=== PATIENT | female | born 1985 | race Caucasian/White ===

== ENCOUNTER → 2016-10-06 | Outpatient (CLI) | payer OTHER ==
[~2016-10-06] MED LIST: INSHNI SQ; INSU70IN2 SC; MTR600X PO; NVLGI7030 SC; OXYC-57 PO; PRENTAB26 PO
[2016-10-06 15:59] LABS: URINE APPEARANCE CLEAR (CLEAR); URINE BILIRUBIN NEG (NEG); URINE COLOR YELLOW; URINE EPITHELIAL CELL AUTO >30 /lpf (0-5); URINE NITRITE NEG (NEG); UROBILINOGEN NEG (NEG)
[2016-10-06 16:01] LABS: MANUAL MICROSCOPIC REQUIRED? NO; REVIEW REQ? NO
== END | disposition home or self-care (01) ==
LOC: C.LABSPEC 16:05
PROVIDERS: ATTEND Obstetrics & Gynecology
DX: O34.219 Maternal care for unspecified type scar from previous cesarean delivery (principal)

== ENCOUNTER → 2016-10-09 | Outpatient (CLI) | payer OTHER ==
[2016-10-09 11:27] LABS: BASO % 0.3 %; BASO ABS # 0.03 K/uL (0-0.2); COMPLETE YES; EOS % 3.1 %; HEMATOCRIT 42.3 % (37-47); IG% 0.2 %; LYMPH % 29.3 %; LYMPH ABS # 2.86 K/uL (1.2-3.4); MEAN CORPUSCULAR HEMOGLOBIN 29.7 pg (25-34); MEAN CORPUSCULAR HGB CONC 34.5 g/dl (32-36); MEAN PLATELET VOLUME 12.4 fL (7.4-10.4); MONO % 8.3 %; NEUT % 58.8 %; PLATELET COUNT 217 K/uL (130-400); RED BLOOD COUNT 4.92 M/uL (4.2-5.4); WHITE BLOOD COUNT 9.76 K/uL (4.8-10.8)
[2016-10-11 02:55] LABS: CHLAMYDIA TRACH RNA*** NOT DETECTED (NOT DETECTED); GC (NEIS GONORRHOEAE)RNA** NOT DETECTED (NOT DETECTED)
== END | disposition home or self-care (01) ==
LOC: C.LAB1850 09:54
PROVIDERS: ATTEND Obstetrics & Gynecology
DX: O34.219 Maternal care for unspecified type scar from previous cesarean delivery (principal)

== ENCOUNTER → 2016-11-21 | Outpatient (CLI) | payer OTHER ==
[2016-11-21 15:19] LABS: GTGD 50 Grams
== END | disposition home or self-care (01) ==
LOC: C.LAB1850 12:35
PROVIDERS: ATTEND Obstetrics & Gynecology
DX: Z34.82 Encounter for supervision of other normal pregnancy, second trimester (principal)

== ENCOUNTER → 2016-12-13 | Outpatient (CLI) | payer OTHER | END | disposition home or self-care (01) | LOC: C.LAB 09:11 | PROVIDERS: ATTEND Obstetrics & Gynecology | DX: O28.1 Abnormal biochemical finding on antenatal screening of mother (principal); Z3A.00 Weeks of gestation of pregnancy not specified ==

== ENCOUNTER → 2017-02-09 | Outpatient (CLI) | payer OTHER ==
[2017-02-09 16:23] LABS: HEMATOCRIT 36.3 % (37-47)
== END | disposition home or self-care (01) ==
LOC: C.LAB1850 15:05
PROVIDERS: ATTEND Obstetrics & Gynecology
DX: Z34.83 Encounter for supervision of other normal pregnancy, third trimester (principal)

== ENCOUNTER → 2017-02-09 | Outpatient (CLI) | payer OTHER ==
[2017-02-09 16:55] LABS: URINE APPEARANCE CLOUDY (CLEAR); URINE BILIRUBIN NEG (NEG); URINE COLOR YELLOW; URINE EPITHELIAL CELL AUTO >30 /lpf (0-5); URINE NITRITE NEG (NEG); URINE PH 5.5 (4.5-7.5); URINE SPECIFIC GRAVITY 1.018 (1.000-1.030); UROBILINOGEN NEG (NEG)
[2017-02-09 17:01] LABS: MANUAL MICROSCOPIC REQUIRED? NO; REVIEW REQ? YES
== END | disposition home or self-care (01) ==
LOC: C.LABSPEC 16:35
PROVIDERS: ATTEND Obstetrics & Gynecology
DX: Z34.83 Encounter for supervision of other normal pregnancy, third trimester (principal)

== ENCOUNTER 2017-03-30 14:59 | Outpatient (CLI) | payer OTHER ==
[~2017-03-30] VITALS: Ht 170.2 cm; Wt 131.5 kg
[2017-03-30] MEDS ORDERED: INSHNI SQ (16:35)
[2017-03-30] MEDS ORDERED: NVLGI7030 SC (16:35)
[2017-03-30] MEDS ORDERED: PRENTAB26 PO (16:35)
[2017-04-23] MEDS ORDERED: INSU70IN2 SC (10:11)
== END 2017-03-30 16:10 | disposition home or self-care (01) ==
LOC: C.LD 14:59 → C.OPB 14:59
PROVIDERS: ATTEND Obstetrics & Gynecology
DX: O16.3 Unspecified maternal hypertension, third trimester (principal); O24.419 Gestational diabetes mellitus in pregnancy, unspecified control; Z3A.35 35 weeks gestation of pregnancy

== ENCOUNTER 2017-04-07 17:50 | Outpatient (CLI) | payer OTHER ==
[~2017-04-07 17:50] MED LIST changes: -INSU70IN2 SC; -MTR600X PO; -OXYC-57 PO
[2017-04-23] MEDS ORDERED: INSU70IN2 SC (10:11)
== END 2017-04-07 18:48 | disposition home or self-care (01) ==
LOC: C.LD 17:50 → C.OPB 17:50
PROVIDERS: ATTEND Obstetrics & Gynecology
DX: O24.419 Gestational diabetes mellitus in pregnancy, unspecified control (principal); Z3A.00 Weeks of gestation of pregnancy not specified

== ENCOUNTER 2017-04-10 11:19 | Outpatient (CLI) | payer OTHER ==
[~2017-04-10] VITALS: Ht 170.2 cm; Wt 132.0 kg
[~2017-04-10 11:19] MED LIST changes: -INSU70IN2 SC; -MTR600X PO; -OXYC-57 PO
[2017-04-10 11:43] VITALS: Ht 170.2 cm; Wt 132.0 kg
[2017-04-23] MEDS ORDERED: INSU70IN2 SC (10:11)
== END 2017-04-10 11:55 | disposition home or self-care (01) ==
LOC: C.OPB 11:19 → C.LD 11:20 → C.OPB 11:55
PROVIDERS: ATTEND Obstetrics & Gynecology
DX: O24.414 Gestational diabetes mellitus in pregnancy, insulin controlled (principal); Z3A.00 Weeks of gestation of pregnancy not specified

== ENCOUNTER → 2017-04-10 | Outpatient (CLI) | payer OTHER ==
[~2017-04-10] MED LIST changes: +INSU70IN2 SC; +MTR600X PO; +OXYC-57 PO
== END | disposition home or self-care (01) ==
LOC: C.LABSPEC 15:58
PROVIDERS: ATTEND Obstetrics & Gynecology
DX: O09.03 Supervision of pregnancy with history of infertility, third trimester (principal)

== ENCOUNTER 2017-04-14 17:38 | Outpatient (CLI) | payer OTHER ==
[2017-04-23] MEDS ORDERED: INSU70IN2 SC (10:11)
== END 2017-04-14 18:04 | disposition home or self-care (01) ==
LOC: C.OPB 17:38 → C.LD 17:38 → C.OPB 18:04
PROVIDERS: ATTEND Obstetrics & Gynecology
DX: O24.419 Gestational diabetes mellitus in pregnancy, unspecified control (principal); Z3A.00 Weeks of gestation of pregnancy not specified

== ENCOUNTER 2017-04-17 18:26 | Outpatient (CLI) | payer OTHER ==
[2017-04-23] MEDS ORDERED: INSU70IN2 SC (10:11)
== END 2017-04-17 18:59 | disposition home or self-care (01) ==
LOC: C.OPB 18:26 → C.LD 18:27 → C.OPB 18:59
PROVIDERS: ATTEND Obstetrics & Gynecology
DX: O24.419 Gestational diabetes mellitus in pregnancy, unspecified control (principal); Z3A.00 Weeks of gestation of pregnancy not specified

== ENCOUNTER 2017-04-27 05:42 | Inpatient (IN) | payer OTHER ==
--- NOTE | 2017-04-23 10:25 | PAT Medication Instructions ---
Service Date Apr 23, 2017. Current Home Medication List Insulin Aspart 70/30 (Novolog Mix 70/30), 40 SC WITH MEALS AND HS Insulin Isophan/Regular (Novolin 70/30), 50-55 UNITS SC HS Multivit/Min/Iron/Fol Ac/Pren ( Vitamin), 1 TAB PO QAM Medication Instructions For Your Scheduled Surgery - Hold the following medications the morning of surgery: Insulin Aspart 70/30 (Novolog Mix 70/30), 40 SC WITH MEALS AND HS Multivit/Min/Iron/Fol Ac/Pren ( Vitamin), 1 TAB PO QAM - Take the following medications as scheduled the night before surgery: Insulin Isophan/Regular (Novolin 70/30), 50-55 UNITS SC HS Insulin Aspart 70/30 (Novolog Mix 70/30), 40 SC WITH MEALS AND HS If you have any questions please call us at [phone] or [phone] or [phone]
[2017-04-23 11:20] LABS: BASO % 0.1 %; BASO ABS # 0.01 K/uL (0-0.2); COMPLETE YES; EOS % 1.6 %; HEMATOCRIT 34.2 % (37-47); IG% 0.2 %; LYMPH ABS # 2.19 K/uL (1.2-3.4); MEAN CELL VOLUME 83.4 fL (80-100); MEAN CORPUSCULAR HEMOGLOBIN 26.8 pg (25-34); MEAN CORPUSCULAR HGB CONC 32.2 g/dl (32-36); MEAN PLATELET VOLUME 12.4 fL (7.4-10.4); MONO % 10.7 %; NEUT % 66.4 %; PLATELET COUNT 201 K/uL (130-400); WHITE BLOOD COUNT 10.44 K/uL (4.8-10.8)
[2017-04-23 11:24] LABS: URINE APPEARANCE CLOUDY (CLEAR); URINE BILIRUBIN NEG (NEG); URINE COLOR DK YELLOW; URINE EPITHELIAL CELL AUTO >30 /lpf (0-5); URINE NITRITE NEG (NEG); URINE SPECIFIC GRAVITY 1.029 (1.000-1.030); UROBILINOGEN NEG (NEG)
[2017-04-23 11:27] LABS: MANUAL MICROSCOPIC REQUIRED? NO; REVIEW REQ? YES
[2017-04-23 11:35] LABS: BLOOD UREA NITROGEN 7 mg/dl (7-18); BUN/CREATININE RATIO 14.5 (10-20); CARBON DIOXIDE 22 mmol/L (21-32); CHLORIDE 108 mmol/L (98-107); CREATININE 0.51 mg/dl (0.60-1.20); GLUCOSE 62 mg/dl (70-99); POTASSIUM 3.7 mmol/L (3.5-5.1); SODIUM 138 mmol/L (136-145)
[2017-04-23 12:13] LABS: URINE MUCUS PRESENT (NONE PRSENT)
[2017-04-27] VITALS (16 sets, daily range): BP systolic 103–117; BP diastolic 69–85; PULSE 73–85; TEMP 36.5–36.7; O2SAT 95–98; Ht 170.2 cm; Wt 132.3 kg
[~2017-04-27] VITALS: Ht 170.2 cm; Wt 132.3 kg
[~2017-04-27 05:42] MED LIST changes: -INSHNI SQ; +INSU70IN2 SC
[2017-04-27] MEDS ORDERED: CEFAZOLIN IV 2,000 MG in DEXTROSE 5% 50ML IV SCH (06:00)
[2017-04-27] MEDS ORDERED: LACTATED RINGER'S 1000ML 1,000 ML IV SCH (06:00)
[2017-04-27] MEDS: CITRIC ACID/SODIUM CITRATE 15 ML UDC PO SCH ×2 (06:00→07:17)
[2017-04-27] MEDS ORDERED: CEFAZOLIN IV 3,000 MG/65 ML D5W IV STA (06:35)
[2017-04-27 06:41] LABS: BASO % 0.1 %; BASO ABS # 0.01 K/uL (0-0.2); HEMATOCRIT 36.1 % (37-47); IG% 0.2 %; LYMPH % 22.2 %; LYMPH ABS # 2.27 K/uL (1.2-3.4); MEAN CELL VOLUME 83.6 fL (80-100); MEAN CORPUSCULAR HEMOGLOBIN 26.2 pg (25-34); MEAN PLATELET VOLUME 12.5 fL (7.4-10.4); MONO % 11.3 %; NEUT % 64.2 %; PLATELET COUNT 199 K/uL (130-400); RED BLOOD COUNT 4.32 M/uL (4.2-5.4); WHITE BLOOD COUNT 10.21 K/uL (4.8-10.8)
[2017-04-27 06:48] LABS: COMPLETE YES; MEAN CORPUSCULAR HGB CONC 31.3 g/dl (32-36)
[2017-04-27] MEDS ORDERED: FENTANYL CITRATE INJ 50 MCG/1 ML 2 ML VIAL ONE (07:22)
[2017-04-27] MEDS ORDERED: OXYTOCIN INJ 10 UNITS/ML VIAL ONE ×4 (07:22→08:28)
[2017-04-27] MEDS ORDERED: MoRPHine SULFATE PF 1 MG/ML 10 ML AMP/VIAL ONE (07:22)
[2017-04-27] MEDS ORDERED: ONDANSETRON INJ 2 MG/ML 2 ML VIAL ONE (07:25)
--- NOTE | 2017-04-27 08:06 | HISTORY & PHYSICAL EXAMINATION ---
DATE OF ADMISSION: 04/27/2017 CHIEF COMPLAINT: Desires repeat . HISTORY OF PRESENT ILLNESS: This is a 32-year-old 0-0-1 with a due date that is derived from last menstrual period consistent with first trimester ultrasound. This has been complicated by insulin-dependent gestational diabetes, prior , history of infertility, gestational hypertension as well as limited compliance with care. ALLERGIES: None. MEDICATION LIST: Insulin, vitamins. PAST MEDICAL HISTORY: Notable for PCOS with ovarian cystectomy fibroids and varicella as well as infertility. This was conceived on Prometrium with the assistance of Christiano Lugo. PAST SURGICAL HISTORY: HSG cholecystectomy, breast reduction and prior section x1. SOCIAL HISTORY: Negative x3. OBSTETRIC HISTORY: 40-week section for failure to progress with a 7-pound 2-ounce infant. PHYSICAL EXAMINATION: Weight is 291 pounds. heart tones on admission are 130 with moderate variability, accels, no decels. Cervical exam was closed, thick, and high April 10, and repeat examination is deferred at this time. ASSESSMENT AND PLAN: A 32-year-old 2, para 1 with a history of a prior and a medically complicated with diabetes and hypertension who is currently presenting for repeat section.
[2017-04-27] MEDS ORDERED: KETOROLAC TROMETHAMINE 30 MG/ML VIAL ONE (08:29)
[2017-04-27] MEDS ORDERED: PHENYLEPHRINE 100MCG/ML 5ML SYR ONE (08:40)
[2017-04-27] MEDS ORDERED: OXYCODONE/ACETAMINOPHEN 5-325 TAB PO PRN (08:45)
[2017-04-27] MEDS ORDERED: MAGNESIUM HYDROXIDE SUSP 30 ML UDC PO PRN (08:45)
[2017-04-27] MEDS ORDERED: KETOROLAC TROMETHAMINE 30 MG/ML VIAL IV. PRN ×2 (08:45→09:00)
[2017-04-27] MEDS ORDERED: SENNA 8.6 MG TAB PO PRN (08:45)
[2017-04-27] MEDS ORDERED: ZOLPIDEM TARTRATE 5 MG TAB PO PRN (08:45)
[2017-04-27] MEDS ORDERED: HYDROCORTISONE ACETATE 25 MG SUPP PR PRN (08:45)
[2017-04-27] MEDS ORDERED: ONDANSETRON INJ 2 MG/ML 2 ML VIAL IV PRN ×2 (08:45→09:00)
[2017-04-27] MEDS ORDERED: LANOLIN OINT EXT PRN ×2 (08:45)
[2017-04-27] MEDS ORDERED: DIPHTHERIA/TETANUS/PERTUSSIS 0.5 ML SYR/VIAL IM. ONE (08:45)
[2017-04-27] MEDS ORDERED: MEPERIDINE HCL 50 MG/ML CARP IV PRN ×2 (08:45)
[2017-04-27] MEDS ORDERED: DiphenhydrAMINE HCL 50 MG/ML VIAL IV PRN ×2 (08:45→09:00)
[2017-04-27] MEDS ORDERED: BENZOCAINE 20% AER SPR 82.5 GM CAN EXT PRN (08:45)
[2017-04-27] MEDS ORDERED: SUPERCREAM 0.870 % 15GM JAR EXT PRN (08:45)
[2017-04-27] MEDS ORDERED: PROMETHAZINE HCL INJ 25 MG in SODIUM CHLORIDE 0.9% 50ML 50 ML IV PRN (08:45)
[2017-04-27] MEDS ORDERED: LACTATED RINGER'S 1000ML 500 ML IV PRN (08:57)
[2017-04-27] MEDS ORDERED: NALOXONE HCL INJ 0.08 MG in SYRINGE 1.8 ML IV PRN (08:57)
[2017-04-27] MEDS ORDERED: NALOXONE HCL INJ 1 MG in SODIUM CHLORIDE 0.9% 1000ML 1,000 ML IV PRN (08:57)
[2017-04-27] MEDS ORDERED: SODIUM CHLORIDE 0.9% 1000ML 1,000 ML IV PRN (08:57)
[2017-04-27] MEDS: SIMETHICONE 80 MG CHEW PO SCH ×4 (09:00→19:58)
[2017-04-27] MEDS ORDERED: PROMETHAZINE HCL INJ 6.25 MG in SODIUM CHLORIDE 0.9% 50ML 50 ML IV PRN (09:00)
[2017-04-27] MEDS ORDERED: NO NARCOTICS OR SEDATIVES SCH (09:00)
[2017-04-27] MEDS ORDERED: NALOXONE HCL 0.4 MG/1 ML VIAL/CARP IV PRN (09:00)
[2017-04-27] MEDS ORDERED: MoRPHine SULFATE PF 1 MG/ML 10 ML AMP/VIAL EPI PRN (09:00)
[2017-04-27] MEDS ORDERED: MoRPHine SULFATE 2 MG/ML CARP IV PRN (09:00)
[2017-04-27] MEDS ORDERED: MEPERIDINE HCL 25 MG/ML CARP IV PRN (09:00)
[2017-04-27] MEDS ORDERED: EpHEDrine SULFATE INJ 50 MG/ML AMP IV PRN (09:00)
--- NOTE | 2017-04-27 09:08 | OPERATIVE REPORT ---
DATE OF OPERATION: 04/27/2017 PREOPERATIVE DIAGNOSES: 1. Medeiros intrauterine at term. 2. Chronic hypertension. 3. Gestational diabetes, insulin-dependent. 4. Group B Strep negative. 5. Prior section. 6. Maternal morbid obesity. POSTOPERATIVE DIAGNOSES: Same. PROCEDURE: Repeat low transverse section. SURGEON: Dr. Latonia Cr. ASSIST: Dr. Moody and PGY1. ANESTHESIA: Spinal. FINDINGS: Morbid maternal obesity and moderate scar from prior section. in vertex presentation. Normal tubes and ovaries bilaterally. Placenta extracted intact with a 3-vessel cord. COMPLICATIONS: None. DISPOSITION: Stable to labor and delivery for recovery. DESCRIPTION OF PROCEDURE: Jewels Colin was placed on the table in the supine position with a leftward tilt, prepped and draped in standard sterile fashion and a hard time-out was taken prior to proceeding. Consultation with the patient both in the office and prior to surgery while she was positioned on the table was undertaken in order to determine the most optimal placement of her incision. We ultimately elected to do a high transverse incision on the abdomen, a few inches below the belly button to accommodate pannus; however, the uterine incision was again low transverse. Her incision was created on the skin, carried down to the subcutaneous tissue to the fascia, which was aimed to be roughly at the level of the anterior superior iliac spines. We were able to identify the midline and dissect the fascia out laterally in the usual smile shaped fashion. The fascia was then grasped with Alison clamps, elevated, and sharply and bluntly dissected off the underlying rectus. The midline of the rectus was in a blunt manner. The peritoneum was entered bluntly and this was extended using pressure from the boring mill operator for metal's hands. A large Yosvany O ring retractor was then placed after palpation of the abdomen, revealed that there were no adhesions to the uterus, which could be damaged by the Yosvany. Once the Yosvany was placed, the lower uterine segment was well visible. The uterus was noted to be levorotated rather significantly. A bladder blade was used to elevate the inferior skin edge including the overlying Yosvany up and away from the lower uterine segment. A bladder flap was then created. A low transverse incision was then made. Clear fluid was encountered. The incision of the hysterotomy was extended bluntly. The surgeon's hand was introduced and the 's head was elevated to the hysterotomy and delivered using mild fundal pressure. A nuchal cord x1 was reduced and then the shoulders and body delivered as well. The female was vigorous immediately after delivery. The cord was doubly clamped and cut and the infant was taken to the warmer. Cord blood was collected. The uterus was then palpated and the placenta was delivered manually. It will be sent for examination. The uterus was then exteriorized, cleared of all clot and debris using a dry lap sponges. The ovaries and tubes were examined and found to be normal. The angles of the hysterotomy were grasped with Allis clamps and the hysterotomy was repaired in the usual running locked fashion using Vicryl suture. At the completion of the repair, the hysterotomy was intact and hemostatic. The uterus was then gently reapproximated into the abdomen after the posterior gutter was noted to be relatively free of any clot or debris. The lateral gutters were cleared using a retractor to elevate the skin and then packing a damp lap sponge into each lateral angle, allowing the hysterotomy angle to be visualized both on and off tension. When the hysterotomy was again assured to be completely hemostatic, all lap sponges were removed and the Yosvany retractor was removed. The fascia was then closed in a running nonlocked manner using PDS suture. At the completion of the repair, the fascia was examined and found to be free of any defect. Subcutaneous tissue was copiously irrigated using clean saline and clean fresh lap sponges. The subcutaneous tissue was closed in 3 layers of 3-0 chromic suture with no more than 2 cm of space between each layer of suture. The final layer of suture was placed just subdermally and then the skin was closed using genesis at approximately a 1-cm interval between each genesis to allow drainage if needed. Telfa was applied over the genesis followed by an ABD lap sponge and Medipore tape was then applied as a dressing. The Noriega was noted to be draining clear yellow urine. At that time, the patient was transferred off the table to the recovery room. I attest to the content of the Intraoperative Record and any orders documented therein. Any exception s are noted below.
--- NOTE | 2017-04-27 09:16 | [facility] Post Operative Brief Note ---
Immediate Operative Summary Operative Date Apr 27, 2017. Pre-Operative Diagnosis PRIOR CAESAREAN SECTION; GESTATIONAL DIABETIC, GESTATIONAL HYPERTENSION, OBESITY; LIMITED PRE- CARE Post-Operative Diagnosis ABOVE Procedure(s) Performed REPEAT CAESAREAN SECTION Surgeon DR. CERVANTES Heavy Machinery Operator Surgeon(s) DR. GEORGE Estimated Blood Loss 600 Findings DELIVERED A VIABLE FEMALE INFANT, APGARS 7, 9. WEIGHT 9#7. NORMAL UTERUS, FALLOPIAN TUBES BILATERALLY. Fluids (cc crystalloids) 700 Specimens PLACENTA - TO BE EXAMINED CORD BLOOD Drains RIOJAS TO STRAIGHT DRAINAGE, CLEAR URINE AT END OF CASE. Anesthesia SPINAL Complication(s) None Disposition Recovery Room / PACU
[2017-04-27] MEDS: NALBUPHINE HCL INJ 10 MG/ML AMP IV PRN ×2 (10:22→17:11)
[2017-04-27] MEDS: OXYTOCIN INJ 20 UNITS in LACTATED RINGER'S 1000ML 1,000 ML IV SCH ×2 (11:03→19:01)
--- NOTE | 2017-04-27 14:13 | Anesthesiology Progress Note ---
Anesthesia Post Op Note Date & Time Apr 27, 2017 at 14:13 Vital Signs Pain Intensity: 0.0 Vital Signs Past 12 Hours Date Time Temp Pulse Resp B/P (MAP) Pulse Ox O2 Delivery O2 Flow Rate FiO2 04/27/17 13:15 16 96 04/27/17 12:15 36.5 76 18 108/70 (83) 97 Room Air 04/27/17 12:15 18 97 04/27/17 11:15 36.6 73 18 111/85 (94) 97 Room Air 04/27/17 11:15 97 Room Air 04/27/17 11:15 97 Room Air 04/27/17 11:15 18 97 Notes Mental Status: alert / awake / arousable, participated in evaluation Pt Amnestic to Procedure: Yes Nausea / Vomiting: adequately controlled Pain: adequately controlled Airway Patency, RR, SpO2: stable & adequate BP & HR: stable & adequate Hydration State: stable & adequate Neuraxial Anesthesia: was administered, sensory block is resolving Anesthetic Complications: no major complications apparent
[2017-04-27] MEDS: DOCUSATE SODIUM 100 MG CAP PO SCH (19:58)
[2017-04-28 00:05] VITALS: BP 100/66; PULSE 72; TEMP 36.4; O2SAT 98
[2017-04-28 01:00] VITALS: O2SAT 98
[2017-04-28 02:30] VITALS: O2SAT 96
[2017-04-28] MEDS ORDERED: NURSING VERBAL MED ORDER ONE (03:00)
[2017-04-28] MEDS ORDERED: DC INTRASPINAL MORPHINE ONE (03:00)
[2017-04-28] MEDS ORDERED: LACTATED RINGER'S 1000ML 500 ML IV STA (03:08)
[2017-04-28] MEDS ORDERED: LACTATED RINGER'S 1000ML 1,000 ML IV SCH (03:15)
[2017-04-28 04:20] VITALS: BP 113/76; PULSE 89; TEMP 36.5; O2SAT 97
[2017-04-28] MEDS: IBUPROFEN 600 MG TAB PO PRN ×3 (04:21→20:57)
[2017-04-28] MEDS: OXYCODONE/ACETAMINOPHEN 5-325 TAB PO PRN ×3 (04:21→20:57)
[2017-04-28 07:07] LABS: BASO % 0.1 %; BASO ABS # 0.01 K/uL (0-0.2); COMPLETE YES; EOS % 2.1 %; HEMATOCRIT 31.1 % (37-47); IG% 0.4 %; LYMPH % 18.7 %; LYMPH ABS # 1.89 K/uL (1.2-3.4); MEAN CELL VOLUME 83.4 fL (80-100); MEAN CORPUSCULAR HGB CONC 31.2 g/dl (32-36); MEAN PLATELET VOLUME 12.1 fL (7.4-10.4); MONO % 8.6 %; NEUT % 70.1 %; PLATELET COUNT 161 K/uL (130-400); RED BLOOD COUNT 3.73 M/uL (4.2-5.4); WHITE BLOOD COUNT 10.12 K/uL (4.8-10.8)
--- NOTE | 2017-04-28 07:16 | Progress Note ---
Subjective Apr 28, 2017. Subjective conversation w/ patient, physical exam, chart review, lab review Ambulation: ambulating normally Voiding: no voiding problems Passing Gas: No Diet Tolerance: Clear Liquids Lochia: Moderate Feeding Type: Breast Feeding Pain: controlled Review of Systems Respiratory: No shortness of breath Cardiac: No chest pain Abdomen: No nausea, No vomiting Female : No dysuria Objective Vital Signs Date Time Temp Pulse Resp B/P (MAP) Pulse Ox O2 Delivery O2 Flow Rate FiO2 04/28/17 04:20 36.5 89 16 113/76 (88) 97 Room Air 04/28/17 02:30 16 96 04/28/17 01:00 18 98 04/28/17 00:05 98 Room Air 04/28/17 00:05 36.4 72 18 100/66 (77) 98 Room Air 04/28/17 00:05 18 98 04/27/17 23:15 16 96 04/27/17 22:35 18 95 04/27/17 22:15 18 95 04/27/17 21:15 20 95 04/27/17 20:15 36.7 85 18 117/75 (89) 97 Room Air 04/27/17 20:15 18 97 04/27/17 19:15 18 97 04/27/17 18:15 16 95 04/27/17 17:15 18 96 04/27/17 16:30 95 Room Air 04/27/17 16:15 20 95 04/27/17 15:15 18 97 04/27/17 15:00 36.5 76 18 103/69 (80) 97 Room Air 04/27/17 14:15 18 98 04/27/17 13:15 16 96 04/27/17 12:15 36.5 76 18 108/70 (83) 97 Room Air 04/27/17 12:15 18 97 04/27/17 11:15 36.6 73 18 111/85 (94) 97 Room Air 04/27/17 11:15 97 Room Air 04/27/17 11:15 97 Room Air 04/27/17 11:15 18 97 Physical Exam General Appearance: WELL-APPEARING, WD/WN, NO APPARENT DISTRESS Respiratory/Chest: lungs clear, normal breath sounds, no respiratory distress Cardiovascular: regular rate, rhythm, no gallop Abdomen: normal bowel sounds, soft Fundus: Firm, Non-Tender, Relation to Umbilicus (at level of U) Incision Description: Clean, Dry & Intact Extremities: no calf tenderness Laboratory Results Last 24 Hours Test 04/28/17 06:50 White Blood Count 10.12 K/uL Red Blood Count 3.73 M/uL Hemoglobin 9.7 g/dL Hematocrit 31.1 % Mean Corpuscular Volume 83.4 fL Mean Corpuscular Hemoglobin 26.0 pg Mean Corpuscular Hemoglobin Concent 31.2 g/dl Platelet Count 161 K/uL Mean Platelet Volume 12.1 fL Neutrophils (%) (Auto) 70.1 % Lymphocytes (%) (Auto) 18.7 % Monocytes (%) (Auto) 8.6 % Eosinophils (%) (Auto) 2.1 % Basophils (%) (Auto) 0.1 % Neutrophils # (Auto) 7.10 K/uL Lymphocytes # (Auto) 1.89 K/uL Monocytes # (Auto) 0.87 K/uL Eosinophils # (Auto) 0.21 K/uL Basophils # (Auto) 0.01 K/uL RDW Standard Deviation 48.3 fL RDW Coefficient of Variation 15.9 % Immature Granulocyte % (Auto) 0.4 % Immature Granulocyte # (Auto) 0.04 K/uL Assessment and Plan Post-Op Day#: 1 Continue Routine Care: - Vital Signs reviewed and WNL. - Hgb 9.7. (on admission was 11.0. Later in afternoon, 11.3.) - Blood Type: O+, GBS - , Rubella Immune. - Pt is doing well clinically. - Monitor and Control pain with Motrin PRN, resume regular diet as tolerated, Monitor Lochia. - Encourage breast feeding. - Continue routine post op care. HETAL QUEZADA PGY1 FM RESIDENT Resident Physician Supervision Note: I interviewed and examined the patient. Discussed with Dr. quezada and agree with findings and plan as documented in the note. Any exceptions or clarifications are listed here: [None] Documented By: Ezequiel Frias Resident Tracking Resident Involvement: Resident Care Provided Care Provided: OB Delivery
[2017-04-28 07:50] VITALS: BP 102/66; PULSE 72; TEMP 36.6
[2017-04-28] MEDS ORDERED: PRENATAL VITAMIN TAB PO SCH (08:00)
--- NOTE | 2017-04-28 08:54 | Anesthesiology Progress Note ---
Anesthesia Post Op Note Date & Time Apr 28, 2017 at 08:53 Vital Signs Pain Intensity: 2.0 Vital Signs Past 12 Hours Date Time Temp Pulse Resp B/P (MAP) Pulse Ox O2 Delivery O2 Flow Rate FiO2 04/28/17 04:20 36.5 89 16 113/76 (88) 97 Room Air 04/28/17 02:30 16 96 04/28/17 01:00 18 98 04/28/17 00:05 98 Room Air 04/28/17 00:05 36.4 72 18 100/66 (77) 98 Room Air 04/28/17 00:05 18 98 04/27/17 23:15 16 96 04/27/17 22:35 18 95 04/27/17 22:15 18 95 04/27/17 21:15 20 95 Notes Mental Status: alert / awake / arousable, participated in evaluation Pt Amnestic to Procedure: Yes Nausea / Vomiting: adequately controlled Pain: adequately controlled Airway Patency, RR, SpO2: stable & adequate BP & HR: stable & adequate Hydration State: stable & adequate Neuraxial Anesthesia: sensory block resolved Anesthetic Complications: no major complications apparent
[2017-04-28] MEDS: SIMETHICONE 80 MG CHEW PO SCH ×4 (09:03→19:50)
[2017-04-28] MEDS: PRENATAL VITAMIN TAB PO SCH (09:03)
[2017-04-28] MEDS: DOCUSATE SODIUM 100 MG CAP PO SCH ×2 (09:03→19:50)
[2017-04-28] MEDS: FERROUS SULFATE 325 MG TAB PO SCH (09:03)
[2017-04-28 15:30] VITALS: BP 118/83; PULSE 96; TEMP 36.4
[2017-04-28] MEDS ORDERED: BISACODYL 5 MG TABEC PO ONE (22:00)
[2017-04-29 00:01] VITALS: BP 114/77; PULSE 79; TEMP 36.8; O2SAT 99
[2017-04-29 06:29] LABS: HEMATOCRIT 31.4 % (37-47)
--- NOTE | 2017-04-29 07:07 | Progress Note ---
Subjective Apr 29, 2017. Subjective conversation w/ patient, physical exam, chart review, lab review Ambulation: ambulating normally Voiding: no voiding problems Passing Gas: Yes Diet Tolerance: Regular Diet Lochia: Moderate Feeding Type: Breast Feeding Pain: controlled Review of Systems Respiratory: No shortness of breath Cardiac: No chest pain Abdomen: No nausea, No vomiting Female : No dysuria Objective Vital Signs Date Time Temp Pulse Resp B/P (MAP) Pulse Ox O2 Delivery O2 Flow Rate FiO2 04/29/17 00:01 99 Room Air 04/29/17 00:01 36.8 79 20 114/77 (89) Room Air 04/28/17 15:30 Room Air 04/28/17 15:30 36.4 96 20 118/83 (95) Room Air 04/28/17 07:50 Room Air 04/28/17 07:50 36.6 72 20 102/66 (78) Room Air Physical Exam General Appearance: WELL-APPEARING, WD/WN, NO APPARENT DISTRESS Respiratory/Chest: lungs clear, normal breath sounds, no respiratory distress Cardiovascular: regular rate, rhythm, no gallop Abdomen: normal bowel sounds, soft Fundus: Firm, Non-Tender, Relation to Umbilicus (1 below U) Incision Description: Clean, Dry & Intact Extremities: no calf tenderness Laboratory Results Last 24 Hours Test 04/29/17 06:11 Hemoglobin 9.4 g/dL Hematocrit 31.4 % Assessment and Plan Post-Op Day#: 2 Continue Routine Care: - Vital Signs reviewed and WNL. - Hgb 9.4. (on admission was 11.3. Yesterday was 9.7.) - Blood Type: O+, GBS - , Rubella Immune. - Pt is doing well clinically. - Monitor and Control pain with Motrin PRN, resume regular diet as tolerated, Monitor Lochia. - Encourage breast feeding. - Pt counselled on discharge instructions. HETAL RICHARDSON PGY1 FM RESIDENT Resident Physician Supervision Note: I was present with Dr. Richardson during the history and exam. I discussed the case with the resident and agree with the findings and plan as documented in the note. Any exceptions or clarifications are listed here: doing well. ready for discharge. discussed pain meds and pain management. routine instructions and f/u 6wk pp. Documented By: Cecy Boston Resident Tracking Resident Involvement: Resident Care Provided Care Provided: OB Delivery
--- NOTE | 2017-04-29 07:08 | Discharge Instructions ---
Discharge Instructions Date of Service Apr 29, 2017. Admission Reason for Admission: Previous Section Discharge Discharge Diagnosis / Problem: DELIVERY Discharge Goals Goal(s): Routine recovery after Medications Continue Dispensed Medications: supercream, dermaplast, tucks, lansinoh Activity Recommendations Activity Limitations: per Instructions/Follow-up section . Instructions / Follow-Up Instructions / Follow-Up ACTIVITY RECOMMENDATIONS: * Gradual return to full activity over the next 2-3 weeks. * No lifting - nothing heavier than baby over the next 2-3 weeks. * Do not engage in vigorous exercise, sexual activity or sports until cleared by your physician. * Do not drive or operate any motorized equipment until cleared by your physician. * You may shower/bathe daily. MEDICATIONS: For discomfort or pain, you may use Acetaminophen (Tylenol), Ibuprofen (Advil), or Naproxen (Aleve) following the package directions. For constipation you may use Colace following the package directions. BREAST CARE: If you are not breast feeding: * Wear a supportive bra 24 hours a day for one to two weeks. * Avoid stimulating your breasts and nipples as much as possible during the first few weeks after delivery. * When taking a shower, have the warm water hit your back, not breasts. * When your breasts feel full, apply ice packs. Usually three to four times a day helps ease the discomfort. * Take a mild pain medication (Tylenol / Motrin) when you are uncomfortable. If breast feeding: * Use breast milk to lubricate nipples. Lansinoh cream may be used for sore nipples. You do not need to remove cream prior to breast feeding. If using a different brand of cream, check the label for directions regarding removal of cream prior to nursing. * Wear a supportive bra. * If having problems with breasts or breast feeding, call a technology sales consultant or your health care provider. SPECIAL CARE INSTRUCTIONS: When you are discharged from the hospital, it is important for you to follow the instructions listed below: * During the first week at home, you should be able to care for yourself and your baby. In addition, the usual light household activities are encouraged. * Limit your activities to the way you feel. Do not try to clean the house or move furniture. Be sensible. * If you actively engage in sports and have done so up until the time of your delivery, you may resume these activities as soon as you feel able. This may take up to one month or even longer. Use good judgment. * Continue to take your vitamins for at least six weeks after the of your baby. * Your diet need not be limited unless you were on a special diet before your delivery. Breast-feeding mothers need around 2500 calories per day and at least 64-80 ounces of fluid per day (8 to 10 glasses). * You should eat foods from the four major food groups. Crash diets or fad diets are to be avoided. Eating lean meats, fresh fruits and vegetables, low-fat dairy products, high fiber foods and a regular exercise program, will help you get back to your pre- weight without putting your health at risk. * Constipation is sometimes a problem after delivery. Take a mild laxative as needed. If breast feeding, Milk of Magnesia is acceptable to use. You may use a suppository or Fleets enema. * A daily shower or tub bath is suggested. Wash incision daily with warm soapy water and pat dry. It doesn't need to be covered unless drainage is present. * A bloody vaginal discharge will usually continue until around four weeks . A small amount of bleeding may continue for as long as six weeks. Vaginal discharge changes from the bright red bleeding after delivery to pink then brownish and finally yellowish-pink before becoming white and disappearing. * Bleeding may increase with activity. Your first period may come in 4-8 weeks. If you are breast feeding, your period may be delayed even longer. * Buras (sex) can begin whenever both you and your partner feel comfortable and do not have any form of genital infection. It is recommended that you wait at least six weeks for internal and external healing to occur. If you have questions, please talk to your health care practitioner. A condom should be used to prevent infection and . * Foreplay, gentle intercourse and lubrication is very important the first several times to prevent pain. A water-based lubricant such as K-Y jelly or Astroglide may be used. * If you have RH negative blood and your baby is RH positive, you will receive RHOGAM by injection prior to discharge. The nurse will give you a card to keep with you that has the date and place that you received RHOGAM after delivery. * During your care, you had a Rubella screen done to check for the presence of rubella antibodies in your blood. If your test was negative, you will receive a Rubella vaccine prior to discharge. This vaccine may cause a fever, soreness at the injection site and flu-like symptoms. If these symptoms persist, notify your health care practitioner. is not advised for one month after a Rubella vaccine. * Verbalizes understanding of car seat law as reviewed with patient nursing. * Car Seat hand-out given and reviewed with patient by nursing. * Shaken baby information reviewed with patient by nursing. Call you doctor if: * Heavy bleeding (saturating several pads an hour) or passing clots the size of your fist. * A fever >101 degrees F (38.3 degrees C) on two occasions four hours apart and /or chills. * Unusual pain in the pelvic or vaginal areas. * Call the doctor for any increased redness, drainage or swelling around the incision and any pain unrelieved by prescribed pain medication. * "Baby Blues" lasting longer than two weeks. If you have any questions or concerns, call your health care practitioner at . FOLLOW UP VISIT: * Please call the office at to schedule a 6 week examination. It is important you keep this appointment. It is important for you to make arrangements for either yearly or twice yearly check-ups thereafter. Current Hospital Diet Patient's current hospital diet: Regular OB Diet Discharge Diet Recommended Diet: Regular Diet Procedures Procedures Performed: REPEAT CAESAREAN SECTION Pending Studies Studies pending at discharge: no Medical Emergencies . Who to Call and When: Medical Emergencies: If at any time you feel your situation is an emergency, please call [phone] immediately. . Non-Emergent Contact Non-Emergency issues call your: Primary Care Provider . . "Provider Documentation" section prepared by Hemalatha Richardson. . VTE Core Measure Inpt VTE Proph given/why not?: SCD's
[2017-04-29] MEDS: OXYCODONE/ACETAMINOPHEN 5-325 TAB PO PRN ×2 (07:12→14:03)
[2017-04-29] MEDS: IBUPROFEN 600 MG TAB PO PRN ×2 (07:13→14:03)
[2017-04-29] MEDS ORDERED: MTR600X PO (07:45)
[2017-04-29] MEDS ORDERED: OXYC-57 PO (07:45)
[2017-04-29] MEDS: SIMETHICONE 80 MG CHEW PO SCH ×2 (07:52→14:02)
[2017-04-29] MEDS: FERROUS SULFATE 325 MG TAB PO SCH (07:53)
[2017-04-29] MEDS: PRENATAL VITAMIN TAB PO SCH (07:53)
[2017-04-29] MEDS: DOCUSATE SODIUM 100 MG CAP PO SCH (07:53)
[2017-04-29 08:00] VITALS: BP 112/76; PULSE 81; TEMP 36.6; O2SAT 100
[2017-04-29] MEDS ORDERED: BISACODYL 10 MG SUPP PR PRN (08:45)
[2017-04-29] MEDS ORDERED: INFLUENZA VACCINE HIGH DOSE 65+ 0.5 ML SYR IM. ONE (10:00)
[2017-04-29] MEDS ORDERED: INFLUENZA ADMINISTRATION CHARGE ONE (10:15)
[2017-04-29] MEDS ORDERED: INFLUENZA VIRUS QUAD VACCINE 0.5 ML SYR IM. ONE (10:15)
[2017-04-29 15:33] VITALS: BP_DIAS 76; PULSE 81; TEMP 36.6
== END 2017-04-29 15:50 | disposition home or self-care (01) | DRG 765 ==
LOC: C.LD 05:42 → C.OBG 11:13 → EDSTATUS 05-01 07:30
PROVIDERS: ADMIT Obstetrics & Gynecology; ATTEND Obstetrics & Gynecology
PROC: 10D00Z1 Extraction of Products of Conception, Low, Open Approach (ICD-10-PCS; principal; 2017-04-27 07:30)
DX: O34.211 Maternal care for low transverse scar from previous cesarean delivery (principal); Z68.42 Body mass index [BMI] 45.0-49.9, adult; O24.424 Gestational diabetes mellitus in childbirth, insulin controlled; Z3A.39 39 weeks gestation of pregnancy; Z37.0 Single live birth; E66.01 Morbid (severe) obesity due to excess calories; O99.214 Obesity complicating childbirth

== ENCOUNTER → 2017-07-17 | Outpatient (CLI) | payer OTHER ==
[~2017-07-17] MED LIST changes: -INSU70IN2 SC; +MTR600X PO; -NVLGI7030 SC; +OXYC-57 PO
[2017-07-17 13:45] LABS: CALCULATED INSULIN SENSITIVITY 0.339; GLUCOSE LOG 1.8129; INSULIN FASTING 13.6 mU/L (3-25); INSULIN LOG 1.1335
[2017-07-17 13:47] LABS: THYROID STIMULATING HORMONE 2.93 uIu/ml (0.300-4.500)
== END | disposition home or self-care (01) ==
LOC: C.LAB1850 11:26
PROVIDERS: ATTEND Obstetrics & Gynecology
DX: E28.2 Polycystic ovarian syndrome (principal)

== ENCOUNTER 2019-04-07 05:36 | Inpatient (IN) ==
--- NOTE | 2019-04-05 16:10 | PAT Medication Instructions ---
Medication Instructions Date of Service April 05, 2019 Home Medications PNV [id number] fumarate-FA [] 1 tab PO HS aspirin 81 mg PO HS insulin NPH isoph U-100 human [Novolin N NPH U-100 Insulin] 50 unit SUBCUT HS insulin aspart U-100 [Novolog Flexpen U-100 Insulin] 45 unit SUBCUT QDD Zantac 1 dose PO UD PRN acetaminophen [Tylenol Extra Strength] 500 mg PO UD PRN ASK your prescriber and surgeon aspirin 81 mg PO HS DO NOT take the morning of surgery Zantac 1 dose PO UD PRN Take morning of surgery acetaminophen [Tylenol Extra Strength] 500 mg PO UD PRN (okay to take up to 4 hours prior to surgery if needed) Take evening before surgery PNV [id number] fumarate-FA [] 1 tab PO HS insulin NPH isoph U-100 human [Novolin N NPH U-100 Insulin] 50 unit SUBCUT HS insulin aspart U-100 [Novolog Flexpen U-100 Insulin] 45 unit SUBCUT QDD Zantac 1 dose PO UD PRN (if needed) acetaminophen [Tylenol Extra Strength] 500 mg PO UD PRN (if needed) Other Notes If you have any questions please call us at [phone] or [phone] or [phone] or [phone]
--- NOTE | 2019-04-06 10:44 | Anesthesiology Consultation ---
Date of Service April 06, 2019 Assessment & Plan (1) Encounter for pre-operative examination: - Hx elevated BP in previous : ASA instructions per OB Chart Review Chart Review: Acceptable Risk for Surgery (pending labs AM DOS) and Patient seen in Pre Admission Testing Teaching & Discussion Pre-Anesthesia Teaching/Discussion Notes: Instructed NPO after midnight before surgery,except medications with 15 cc of water. Medication instructions provided according to the PAT guidelines. History Surgery Operation Date: 04/07/19 07:30 Proposed Procedures p Section in LD - Carl Arias MD Height/Weight Height: 5 ft 7 in Weight: 147.1 kg Allergies Allergy/AdvReac Type Severity Reaction Status Date / Time No Known Allergies Allergy Verified 04/06/19 09:22 Medications Home Medications Medication Instructions Recorded Confirmed Last Taken PNV cmb#95-ferrous fumarate-FA 1 tab PO HS #0 tab 03/30/17 04/06/19 03/31/19 [] aspirin 81 mg PO HS 02/17/19 04/06/19 03/31/19 insulin NPH isoph U-100 human 50 unit SUBCUT HS 02/17/19 04/06/19 03/31/19 [Novolin N NPH U-100 Insulin] insulin aspart U-100 [Novolog 45 unit SUBCUT QDD 02/17/19 04/06/19 03/31/19 Flexpen U-100 Insulin] acetone (urine) test strips #25 ea 03/11/19 04/06/19 Unknown blood sugar diagnostic strips #10 ea 03/11/19 04/06/19 Unknown lancets 33 gauge #100 ea 03/11/19 04/06/19 Unknown Zantac 1 dose PO UD PRN 04/01/19 04/06/19 Unknown acetaminophen [Tylenol Extra 500 mg PO UD PRN 04/01/19 04/06/19 Unknown Strength] amoxicillin 875 mg tablet 875 mg PO BID 04/06/19 04/06/19 Unknown pseudoephedrine HCl PO 04/06/19 04/06/19 Unknown Past Medical History Medical History Carpal tunnel syndrome Chronic hypertension in elevated BP readings with previous - on ASA Ear infection left ear- on amoxicillin (OB aware) Gestational diabetes IDDM Heartburn during in third trimester History of palpitations remote hx s/p unremarkable holter monitor; no recent issues History of uterine fibroid Infertility conceived on Prometrium Morbid obesity PCOS (polycystic ovarian syndrome) Exercise / Class Metabolic Activity III < 4 Walking/Shop/Light housework Past Family History Family History Grandmother (Maternal) Hypertension Grandmother (Paternal) Family history of colon cancer Family history of diabetes mellitus (DM) Past Surgical History Surgical History H/O ovarian cystectomy History of 2 sections c/s (2002)- failure to progress; spinal with good pain control c/s (2016)- repeat c/s; spinal with good pain control (SAB x 1 at L3-L4 at [facility]) History of gynecologic surgery diagnostic procedure History of laparoscopic cholecystectomy Hx of breast reduction, elective Hx of oral surgery Past Anesthesia History No Hx of Anesthesia Complications and No Family Hx of Anesthesia Complications History of PONV No Hx of PONV and No Hx of Motion Sickness Social History Smoking Status: Never smoker Do You Dip or Chew Tobacco: No Hx Alcohol Use: No Hx Substance Use: No substance use type: does not use Review of Systems Reflux related. Patient denies chest pain, shortness of breath, cough, wheezing, palpitations. Physical Exam Vital Signs VITALS BP 129/92 P 82 TEMP 98.3 SP02 98%RA RESP 16 PHYSICAL Full neck and c-spine range of motion. Full TMJ range of motion. TMD 3.5 finger breaths Mallampati Score 2 (large tonsils) Dentition: right lower side tooth "sensitive" but per patient, dentist said nothing further to do until after delivery Lungs: clear throughout to auscultation Cardiac: regular rate and rhythm, no murmurs noted Spine: normal Carotid arteries: negative bruit Extremities: no edema Short, thick neck
--- NOTE | 2019-04-06 13:43 | History and Physical Report ---
DATE OF ADMISSION: 04/07/2019 DATE OF PLANNED ADMISSION: 04/07/2019 REASON FOR ADMISSION: Scheduled repeat section. BRIEF HISTORY: Ms. Colin is a 33-year-old G3, P2-0-0-2 who will be admitted at 39 weeks 4 days gestational age for scheduled repeat low transverse section with history of 2 prior C-sections. Today, the patient is denying any regular contractions, vaginal bleeding, leakage of fluid, and is reporting normal movement. COURSE: The patient presented for care at approximately 8 weeks gestational age. She has been normotensive throughout. She has had occasional glucosuria, negative proteinuria. COMPLICATIONS: 1. History of x2. 2. Chronic hypertension, maintained without current antihypertensive. The patient has been on baby aspirin since 12 weeks' gestational age. 3. Insulin controlled gestational diabetic. 4. Large for gestational age fetus with estimated weight above the 98th percentile. 5. Maternal obesity with BMI of approximately 50. PAST MEDICAL HISTORY: 1. Chronic hypertension, please see above. 2. PCOS. 3. History of uterine fibroids. PAST SURGICAL HISTORY: 1. x2. 2. Cholecystectomy. 3. Breast reduction. CURRENT MEDICATIONS: See EMR. ALLERGIES: The patient denies any known drug allergies. OB HISTORY: The patient has had 2 prior sections at term. First section was in 2002 was for failure to progress. The patient had a scheduled repeat section at 39 weeks for second in 2017. PHYSICAL EXAMINATION: VITAL SIGNS: Today, blood pressure 130/100, weight 323 pounds, BMI 50.1. GENERAL: The patient is well appearing in no acute distress, alert and oriented x3. CARDIAC: Showed regular rate and rhythm. LUNGS: Clear bilaterally. ABDOMEN: Soft, obese with significant edema noted to be present. BPP obtained today was 8 out of 8, nonreactive, which was followed a nonreactive NST for inability to trace baby. Lower extremities showed 2-3+ pitting edema. The prior incisions were noted on the abdomen, noted to be well healed. ASSESSMENT: Ms. Colin is a 33-year-old G3, P2-0-0-2, be admitted for a repeat section at 39+ weeks gestational age. PLAN: 1. Fetus 8/8 BPP today. 2. Delivery planning for a repeat section. The patient declined tubal ligation. consents were reviewed and signed in clinic today. All questions answered to patient's satisfaction. We did discuss the significant increased risks of a wound infection secondary to BMI at present as well as in addition, we discussed the additional risks of the procedure as this will be her third with a history of BMI of 50. 2. hemorrhage risk, considered moderate risk. Will collect CBC and type and screen and cross for 1 unit. 3. Insulin-dependent gestational diabetic. We will evaluate glucose at time of admission. 4. Chronic hypertension. The patient currently controlled without medications. We will continue to monitor.
[2019-04-07] MEDS ORDERED: LACTATED RINGER'S 1,000 ML IV SCH ×3 (05:45→06:39)
[2019-04-07] MEDS ORDERED: CITRIC ACID/SODIUM CITRATE 15 ML UDC PO SCH ×2 (06:00)
[2019-04-07] MEDS ORDERED: CEFAZOLIN 3,000 MG in DEXTROSE 5% 50 ML IV SCH (06:00)
[2019-04-07 06:03] LABS: Basophils # (auto) 0.01 K/uL (0-0.2); Basophils % (auto) 0.1 %; Eosinophils # (auto) 0.18 K/uL (0-0.5); Eosinophils % (auto) 2.1 %; Hematocrit (blood only) 37.6 % (37-47); Hemoglobin 12.3 g/dL (12.0-16.0); Immature Granulocytes # (auto) 0.03 K/uL (0.00-0.02); Immature Granulocytes % (auto) 0.4 %; Lymphocytes % (auto) 22.4 %; Mean Corpuscular Hemoglobin 28.5 pg (25-34); Mean Corpuscular Hgb Conc 32.7 g/dL (32-36); Mean Corpuscular Volume 87.2 fL (80-100); Mean Platelet Volume 12.7 fL (7.4-10.4); Monocytes # (auto) 1.07 K/uL (0.11-0.59); Monocytes % (auto) 12.6 %; Neutrophils # (auto) 5.28 K/uL (1.4-6.5); Neutrophils % (auto) 62.4 %; Platelet Count 177 K/uL (130-400); RDW Coefficient of Variation 15.4 % (11.5-14.5); RDW Standard Deviation 48.9 fL (36.4-46.3); Red Blood Count 4.31 M/uL (4.2-5.4); White Blood Count 8.47 K/uL (4.8-10.8)
[2019-04-07] MEDS ORDERED: MoRPHine SULFATE PF 1 MG/ML 10 ML AMP/VIAL ONE (07:06)
--- NOTE | 2019-04-07 07:26 | History & Physical Bridge Note ---
Date of Service April 07, 2019 History & Physical Bridge Note I have examined the patient, reviewed the History & Physical and in the interval since the performance of the History & Physical I have noted the following changes of clinical significance: no changes noted
[2019-04-07] MEDS ORDERED: DiphenhydrAMINE HCL 50 MG/ML VIAL IV PRN (08:29)
[2019-04-07] MEDS ORDERED: MoRPHine SULFATE PF 1 MG/ML 10 ML AMP/VIAL INT SPINAL ONE (08:29)
[2019-04-07] MEDS ORDERED: ONDANSETRON INJ 2 MG/ML 2 ML VIAL IV PRN (08:29)
[2019-04-07] MEDS ORDERED: NALOXONE HCL 0.4 MG/1 ML VIAL/CARP IV PRN (08:29)
[2019-04-07] MEDS ORDERED: ePHEDrine sulfate 50 MG/ML AMP IV PRN (08:29)
[2019-04-07] MEDS ORDERED: PROMETHAZINE HCL 12.5 MG in SODIUM CHLORIDE 0.9% 50 ML IV PRN (08:29)
[2019-04-07] MEDS ORDERED: NALBUPHINE HCL INJ 10 MG/ML AMP IV PRN (08:29)
[2019-04-07] MEDS ORDERED: NALOXONE HCL 0.08 MG in SYRINGE 1.8 ML IV PRN (08:29)
[2019-04-07] MEDS ORDERED: MEPERIDINE HCL 25 MG/ML CARP IV PRN (08:29)
[2019-04-07] MEDS ORDERED: LACTATED RINGER'S 500 ML IV PRN (08:29)
[2019-04-07] MEDS ORDERED: NALOXONE HCL 1 MG in SODIUM CHLORIDE 0.9% 1000ML 1,000 ML IV PRN (08:29)
[2019-04-07] MEDS ORDERED: NO NARCOTICS OR SEDATIVES SCH (08:30)
[2019-04-07] MEDS ORDERED: DC INTRASPINAL MORPHINE SCH (08:30)
[2019-04-07] MEDS ORDERED: SODIUM CHLORIDE 0.9% 1000ML 1,000 ML IV SCH (08:30)
[2019-04-07] MEDS ORDERED: BENZOCAINE 20% AER SPR 82.5 GM CAN EXT PRN (09:20)
[2019-04-07] MEDS ORDERED: SENNA 8.6 MG TAB PO PRN (09:20)
[2019-04-07] MEDS ORDERED: DIPHTHERIA/TETANUS/PERTUSSIS 0.5 ML SYR/VIAL IM ONE (09:20)
[2019-04-07] MEDS ORDERED: HYDROCORTISONE ACETATE 25 MG SUPP PR PRN (09:20)
[2019-04-07] MEDS ORDERED: MAGNESIUM HYDROXIDE SUSP 30 ML UDC PO PRN (09:20)
[2019-04-07] MEDS ORDERED: SUPERCREAM 0.870% 15 GM JAR EXT PRN (09:20)
[2019-04-07] MEDS ORDERED: PROPOFOL IV EMULSION 10 MG/ML 20 ML VIAL IV ONE (09:21)
[2019-04-07] MEDS ORDERED: PHENYLEPHRINE 100MCG/ML 5ML SYR ONE (09:21)
[2019-04-07] MEDS ORDERED: OXYTOCIN 10 UNITS/ML VIAL ONE (09:21)
[2019-04-07] MEDS ORDERED: LIDOCAINE HCL 2% MPF (LOCAL) 5 ML VIAL INFIL ONE (09:21)
[2019-04-07] MEDS ORDERED: ONDANSETRON INJ 2 MG/ML 2 ML VIAL ONE (09:21)
[2019-04-07] MEDS ORDERED: SUCCINYLCHOLINE CHLORIDE 20 MG/ML 10 ML VIAL ONE (09:21)
[2019-04-07] MEDS ORDERED: ePHEDrine sulfate 50 MG/ML SYR ONE (09:21)
[2019-04-07] MEDS ORDERED: METOCLOPRAMIDE HCL INJ 5 MG/ML 2 ML VIAL ONE (09:21)
--- NOTE | 2019-04-07 09:52 | Post Operative Brief Note ---
PG Immediate Post Op with CF Date of Surgery April 07, 2019 Pre & Post Diagnosis Operation Date: 04/07/19 07:30 Pre-Op Diagnosis: 1. Elective repeat section 2. hx of x2 3. Type 2 diabetes 4. Chronic hypertension 5. Polyhydriamnios Post-Op Diagnosis: Same as pre-op Procedure Operation Date: 04/07/19 07:30 Actual Procedures p Section in LD - Carl Arias MD Complications: None Surgeon Carl Arias MD Pool Finisher Dr. Moody Estimated Blood Loss 1,000 Findings Consistent with Post-Op Diagnosis Specimens Specimen Description: 1. Placenta - Exam 2. Cord blood Drains Noriega Catheter
[2019-04-07] MEDS ORDERED: miSOPROStol 200 MCG TAB ONE (11:10)
[2019-04-07] MEDS ORDERED: METHYLERGONOVINE MALEATE 0.2 MG/ML AMP ONE (11:12)
[2019-04-07] MEDS ORDERED: miSOPROStol 200 MCG TAB PR ONE (11:17)
[2019-04-07] MEDS ORDERED: OXYTOCIN 40 UNITS in LACTATED RINGER'S 1,000 ML IV SCH (11:30)
[2019-04-07] MEDS ORDERED: CARBOPROST TROMETHAMINE 250 MCG/ML AMPUL ONE (12:24)
[2019-04-07] MEDS ORDERED: SODIUM CHLORIDE 0.9% 250 ML IV PRN (12:28)
[2019-04-07 12:43] LABS: Hematocrit (blood only) 31.5 % (37-47); Hemoglobin 10.1 g/dL (12.0-16.0)
[2019-04-07] MEDS: METHYLERGONOVINE MALEATE 0.2 MG TAB PO SCH ×3 (13:07→21:06)
[2019-04-07] MEDS ORDERED: LACTATED RINGER'S 1,000 ML IV ONE (13:43)
[2019-04-07] MEDS ORDERED: CARBOPROST TROMETHAMINE 250 MCG/ML AMPUL IM PRN (13:47)
[2019-04-07] MEDS ORDERED: METHYLERGONOVINE MALEATE 0.2 MG/ML AMP IM PRN (13:47)
[2019-04-07] MEDS ORDERED: CEFAZOLIN 3000MG/72.5 ML BAG IV SCH (14:00)
[2019-04-07] MEDS: CEFAZOLIN 3,000 MG in DEXTROSE 5% 50 ML IV SCH ×2 (14:09→21:57)
[2019-04-07] MEDS: OXYTOCIN 20 UNITS in LACTATED RINGER'S 1,000 ML IV SCH ×2 (14:42→22:31)
--- NOTE | 2019-04-07 14:59 | Operative Report ---
DATE OF OPERATION: 04/07/2019 PROCEDURE: Repeat low transverse section. SURGEON: Carl Arias MD. INFERTILITY NURSE: Jessica Moody MD. PREOPERATIVE DIAGNOSES: 1. Elective repeat section. 2. History of section x2. 3. Type 2 diabetes. 4. Chronic hypertension. 5. Polyhydramnios. 6. Large for gestational age fetus. POSTOPERATIVE DIAGNOSES: 1. Elective repeat section. 2. History of section x2. 3. Type 2 diabetes. 4. Chronic hypertension. 5. Polyhydramnios. 6. Large for gestational age fetus. 7. Status post delivery. ESTIMATED BLOOD LOSS FOR THE PROCEDURE: 1000 mL. DRAINS: None. FLUIDS: Continuous lactated Ringer. URINE OUTPUT: 50 mL. COMPLICATIONS: None. INDICATIONS: Jewels is a 33-year-old -0-0-2, presents at 39 weeks 4 days gestational age for scheduled repeat low transverse section with history of 2 prior C-sections. The patient was seen yesterday, at which time consents were reviewed and signed. We did discuss that she was at a significantly increased risk for postoperative infection as well as hemorrhage due to the prior history of 2 C-sections, large for gestational age fetus and polyhydramnios. The patient was seen prior to proceeding to the OR today and patient was doing well and all questions were once again addressed and answered. FINDINGS: Viable female infant with weight of 11 pounds 14 ounces, 5390 g and Apgars of 8 and 9 at one and five minutes, respectively. DESCRIPTION OF PROCEDURE: The patient was taken to the operating room after consents were ensured. Upon presentation, she was properly identified. Spinal anesthesia was obtained without difficulty. The patient was then placed in supine position and was prepped and draped in the normal sterile fashion. Preprocedure timeout was performed. A Pfannenstiel incision was then made with a knife. This was carried down to the underlying fascia with the Bovie. The fascia was then nicked at the midline with a knife. The fascia was then extended in each direction with pickups and Werner scissors. The Kochers were placed on the superior aspect of the fascia, grasped and elevated off the underlying rectus muscles using the knife with blunt dissection and Werner scissors. The inferior aspect of the fascia was then grasped with Kochers x2, elevated off the underlying rectus muscles using blunt dissection. The midline was then entered bluntly at this time and the uterus was noted to be free of adhesions. The abdomen was then placed on stretch to provide adequate room for delivery. An Yosvany retractor was then placed for better visualization and a bladder flap was then created in the normal fashion. A low transverse uterine incision was then made with a knife and the amniotic membranes were then ruptured bluntly. The Pfannenstiel incision was then extended in each direction with stretch and the was noted to be in cephalic position and delivered through the hysterotomy without difficulty. Body and shoulders quickly followed. The was noted to be vigorous upon delivery. The cord was then doubly clamped and cut. was taken to the waiting nursery staff. Cord blood was then obtained. Attention was then turned to delivery of the placenta, which was delivered with manual extraction. The uterus was then exteriorized and several passes were made inside of the uterus to remove any remaining membranes with a wet lap. The hysterotomy was then closed with 0 Vicryl in continuous running locked suture. There was noted to be an area of bleeding noted on the right apex of the hysterotomy and hemostasis was achieved with [id number] stitch of 3-0 chromic. The posterior cul-de-sac was then cleaned of clots and debris. The uterus was returned to maternal abdomen. The right and left pericolic gutters were cleaned of clots and debris. Hysterotomy was then reinspected. There was noted to be a few areas of slight bleeding, which were cauterized with a Bovie to achieve hemostasis. The fascia, muscle and subcutaneous layers were then inspected and noted to be hemostatic. The fascia was then reapproximated with 0 Vicryl extending from each lateral direction towards the midline. The subcutaneous layer was then reinspected and noted to have continued hemostasis and was reapproximated in 3 layers with 2-0 plain. The skin was then reapproximated with 3-0 Vicryl on a Mt needle. Needle, sponge and instrument counts were correct at the completion of the case. Both mother and were returned to the recovery room in stable condition. I attest to the content of the Intraoperative Record and any orders documented therein. Any exception s are noted below.
[2019-04-07] MEDS: SIMETHICONE 80 MG CHEW PO SCH ×3 (16:27→21:05)
[2019-04-07] MEDS: KETOROLAC 30 MG/ML VIAL IV PRN (18:16)
--- NOTE | 2019-04-07 18:27 | Anesthesiology Progress Note ---
Date of Service April 07, 2019 Anesthesia Post Procedure Vital Signs Vital Signs: Temp Pulse Pulse Resp BP BP Pulse Ox 04/07/19 18:22 105 H 98 04/07/19 18:17 113 H 97 04/07/19 18:16 116 H 87 L 04/07/19 18:12 111 H 100 04/07/19 18:07 108 H 98 04/07/19 18:02 115 H 98 04/07/19 17:57 111 H 96 04/07/19 17:52 113 H 97 04/07/19 17:47 113 H 97 04/07/19 17:42 112 H 98 04/07/19 17:38 114 H 89 L 04/07/19 17:37 117 H 97 04/07/19 17:33 107 H 20 142/68 H 96 04/07/19 17:32 109 H 98 04/07/19 17:27 106 H 97 04/07/19 17:22 100 H 96 04/07/19 17:17 101 H 96 04/07/19 17:12 108 H 98 04/07/19 17:07 110 H 97 04/07/19 17:02 111 H 98 04/07/19 16:57 109 H 97 04/07/19 16:56 109 H 87 L 04/07/19 16:52 115 H 99 04/07/19 16:47 107 H 97 04/07/19 16:42 107 H 96 04/07/19 16:37 109 H 97 04/07/19 16:32 109 H 98 04/07/19 16:30 20 96 04/07/19 16:28 114 H 18 140/82 98 04/07/19 16:27 105 H 96 04/07/19 16:22 112 H 96 04/07/19 16:17 110 H 98 04/07/19 16:12 118 H 98 04/07/19 16:07 119 H 99 04/07/19 16:02 115 H 98 04/07/19 15:57 103 H 97 04/07/19 15:52 105 H 99 04/07/19 15:47 110 H 98 04/07/19 15:42 113 H 97 04/07/19 15:37 105 H 97 04/07/19 15:32 111 H 97 04/07/19 15:30 101 H 90 04/07/19 15:28 103 H 125/66 04/07/19 15:27 106 H 97 04/07/19 15:22 36.4 C L 115 H 20 98 04/07/19 15:17 108 H 98 04/07/19 15:12 103 H 96 04/07/19 15:07 111 H 99 04/07/19 15:02 113 H 97 04/07/19 14:57 107 H 96 04/07/19 14:56 96 H 90 04/07/19 14:52 110 H 99 04/07/19 14:47 100 H 98 04/07/19 14:42 112 H 98 04/07/19 14:37 108 H 98 04/07/19 14:32 114 H 99 04/07/19 14:28 144 H 20 112/77 95 04/07/19 14:27 108 H 97 04/07/19 14:22 109 H 98 04/07/19 14:17 117 H 98 04/07/19 14:12 120 H 98 04/07/19 14:07 115 H 98 04/07/19 14:02 113 H 99 04/07/19 13:57 114 H 98 04/07/19 13:52 120 H 99 04/07/19 13:47 117 H 96 04/07/19 13:42 112 H 99 04/07/19 13:37 114 H 99 04/07/19 13:32 114 H 99 04/07/19 13:27 112 H 98 04/07/19 13:25 111 H 125/71 04/07/19 13:22 111 H 99 04/07/19 13:17 116 H 100 04/07/19 13:14 110 H 20 128/83 95 04/07/19 13:12 116 H 99 04/07/19 13:09 112 H 124/79 04/07/19 13:07 119 H 99 04/07/19 13:05 111 H 90 04/07/19 13:02 114 H 99 04/07/19 12:57 103 H 98 04/07/19 12:55 123 H 18 133/71 94 04/07/19 12:52 125 H 99 04/07/19 12:48 110 H 90 04/07/19 12:47 105 H 96 04/07/19 12:45 117 H 16 122/78 04/07/19 12:42 123 H 99 04/07/19 12:37 129 H 127/73 96 04/07/19 12:32 128 H 95 04/07/19 12:29 59 L 16 129/79 94 04/07/19 12:27 117 H 97 04/07/19 12:22 122 H 96 04/07/19 12:17 120 H 93 04/07/19 12:12 122 H 97 04/07/19 12:07 125 H 95 04/07/19 12:05 129 H 16 160/72 H 04/07/19 12:02 118 H 97 04/07/19 11:57 109 H 92 04/07/19 11:54 118 H 112/56 L 04/07/19 11:52 119 H 96 04/07/19 11:47 117 H 97 04/07/19 11:44 121 H 109/52 L 04/07/19 11:42 115 H 95 04/07/19 11:37 120 H 96 04/07/19 11:35 113 H 16 111/57 L 96 04/07/19 11:32 117 H 95 04/07/19 11:27 115 H 96 04/07/19 11:25 120 H 131/60 04/07/19 11:23 36.4 C L 18 97 04/07/19 11:22 112 H 105/56 L 94 04/07/19 11:17 125 H 98 04/07/19 11:15 114 H 129/65 04/07/19 11:12 122 H 98 04/07/19 11:07 121 H 97 04/07/19 11:05 103 H 130/61 04/07/19 11:02 115 H 98 04/07/19 10:57 121 H 97 04/07/19 10:56 120 H 16 132/72 94 04/07/19 10:54 110 H 87 L 04/07/19 10:52 103 H 95 04/07/19 10:51 20 97 04/07/19 10:47 118 H 95 04/07/19 10:42 111 H 97 04/07/19 10:41 20 98 04/07/19 10:37 104 H 97 04/07/19 10:35 101 H 150/75 H 04/07/19 10:32 116 H 96 04/07/19 10:31 20 97 04/07/19 10:27 107 H 96 04/07/19 10:25 108 H 135/76 04/07/19 10:22 111 H 98 04/07/19 10:21 20 98 04/07/19 10:17 112 H 99 04/07/19 10:14 104 H 137/74 04/07/19 10:12 105 H 98 04/07/19 10:11 22 98 04/07/19 10:08 111 H 137/82 04/07/19 10:07 108 H 97 04/07/19 10:02 102 H 97 04/07/19 10:01 20 97 04/07/19 09:57 106 H 93 04/07/19 09:53 102 H 20 134/68 98 04/07/19 09:52 102 H 98 04/07/19 09:51 36.6 C 100 H 20 134/68 98 04/07/19 06:49 98 H 153/90 H 04/07/19 06:35 99 H 141/90 H 04/07/19 06:04 37.3 C 18 Transfer of Care Handoff Completed per policy Notes Mental Status: alert / awake / arousable Patient Amnestic to Procedure: Yes Nausea / Vomiting: adequately controlled Pain: adequately controlled Airway Patency, RR, SpO2: stable & adequate BP & HR: stable & adequate Hydration State: stable & adequate Neuraxial Anesthesia: was administered and sensory block is resolving Anesthetic Complications: no major complications apparent
[2019-04-07 19:06] LABS: Hematocrit (blood only) 25.1 % (37-47); Hemoglobin 8.1 g/dL (12.0-16.0)
[2019-04-07] MEDS: DOCUSATE SODIUM 100 MG CAP PO SCH (21:06)
[2019-04-08] MEDS: KETOROLAC 30 MG/ML VIAL IV PRN (00:12)
[2019-04-08] MEDS ORDERED: ZOLPIDEM TARTRATE 5 MG TAB PO PRN (02:30)
[2019-04-08] MEDS ORDERED: KETOROLAC 30 MG/ML VIAL IV PRN (02:30)
[2019-04-08] MEDS ORDERED: ONDANSETRON INJ 2 MG/ML 2 ML VIAL IV PRN (02:30)
[2019-04-08] MEDS ORDERED: PROMETHAZINE HCL 25 MG in SODIUM CHLORIDE 0.9% 50 ML IV PRN (02:30)
[2019-04-08] MEDS ORDERED: DiphenhydrAMINE HCL 50 MG/ML VIAL IV PRN (02:30)
[2019-04-08] MEDS ORDERED: MEPERIDINE HCL 50 MG/ML CARP IV PRN (02:30)
[2019-04-08] MEDS: CEFAZOLIN 3,000 MG in DEXTROSE 5% 50 ML IV SCH (06:08)
[2019-04-08 06:58] LABS: Hematocrit (blood only) 18.1 % (37-47); Mean Corpuscular Hemoglobin 28.8 pg (25-34); Mean Corpuscular Hgb Conc 33.1 g/dL (32-36); Mean Platelet Volume 11.8 fL (7.4-10.4); Platelet Count 117 K/uL (130-400); RDW Coefficient of Variation 15.8 % (11.5-14.5); RDW Standard Deviation 49.5 fL (36.4-46.3); Red Blood Count 2.08 M/uL (4.2-5.4); White Blood Count 8.09 K/uL (4.8-10.8)
[2019-04-08] MEDS ORDERED: SODIUM CHLORIDE 0.9% 250 ML IV PRN ×2 (07:00→07:14)
[2019-04-08 07:12] LABS: Basophils # (auto) 0.01 K/uL (0-0.2); Basophils % (auto) 0.1 %; Eosinophils # (auto) 0.07 K/uL (0-0.5); Eosinophils % (auto) 0.9 %; Immature Granulocytes # (auto) 0.01 K/uL (0.00-0.02); Immature Granulocytes % (auto) 0.1 %; Lymphocytes # (auto) 1.18 K/uL (1.2-3.4); Lymphocytes % (auto) 14.6 %; Monocytes # (auto) 0.73 K/uL (0.11-0.59); Neutrophils # (auto) 6.09 K/uL (1.4-6.5); Neutrophils % (auto) 75.3 %; RBC Morphology Unremarkable
--- NOTE | 2019-04-08 07:32 | Obstetrical Progress Note ---
Date of Service <Edilberto Jacobojulio c - Last Filed: 04/08/19 07:31> April 08, 2019 Assessment & Plan <Edilberto Danielson DO - Last Filed: 04/08/19 07:31> (1) : -POD#1 -Vitals reviewed, WNL (Tmax 37.0) - GBS -, Blood Type O+ - Pain well controlled. - Routine post care - Patient had PPH of roughly 1800 cc blood loss yesterday - Hg this AM was 6.0 - 2 units of PRBC type and cross ordered to be transfused today. - Devonte balloon reduced from 150cc to 75cc this AM, will consider removal later this morning. Day #:: 1 Subjective <Edilberto Jacobojulio c - Last Filed: 04/08/19 07:31> Ambulation: limited ambulation Voiding: triana catheter in place Passing Gas:: Yes Diet Tolerance:: clear liquids Lochia:: Large Feeding Type:: breast feeding (Breast and bottle feeding) Current Pain Level(1-10): 8 (improves with analgesics) Patient is a 33 POD#1. Patient states that she feels as though she was "hit by a truck" and that she is quite exhausted this morning. She does note that she is feeling better than she did yesterday, only that she was tired. Her pain is fairly well controlled on analgesics. Constitutional: no fever and no chills Respiratory: no cough, no dyspnea and no wheezing Cardiovascular: + edema; no chest pain, no dyspnea, no dyspnea on exertion and no calf pain Breast: no breast pain Gastrointestinal: no abdominal pain, no nausea and no vomiting Triana catheter in place. Neurologic: no headache(s) Physical Exam <Edilberto Jacobojulio c - Last Filed: 04/08/19 07:31> Constitutional + morbidly obese, cooperative and comfortable; no acute distress Respiratory normal respiratory effort, lungs clear to auscultation Cardiovascular Rate/Rhythm: regular rate and regular rhythm Heart Sounds: normal S1 and normal S2; no click, no gallop, no murmur and no cardiac rub Extremities: + edema (+1, SCDs in place); no calf tenderness Gastrointestinal (Abdomen) Inspection/Auscultation: abdomen normal to inspection, normal bowel sounds, + abdominal edema (abdominal edema pooling in lower quadrants) and + abdominal surgical incision (Clean and Dry, No Pus noted. ) Percussion/Palpation: + abdomen tender (Slightly tender to palpation of upper abdominal quadrants) and abdomen soft Genitourinary OB Exam Abdomen: + fundal height Fundus: + firm and + relation to umbilicus (+2 cm above, patient has Devonte balloon in place at 150cc); not tender and not boggy Results & Data <Edilberto Danielson DO - Last Filed: 04/08/19 07:31> Vital Signs (Past 12 Hours) Vital Signs Temp Pulse Resp BP Pulse Ox 04/08/19 07:22 105 H 98 04/08/19 07:17 92 H 100 04/08/19 07:12 97 H 98 04/08/19 07:08 100 H 86 L 04/08/19 07:07 105 H 100 04/08/19 07:02 101 H 100 04/08/19 06:57 99 H 95 04/08/19 06:52 93 H 100 04/08/19 06:47 97 H 100 04/08/19 06:42 96 H 97 04/08/19 06:37 94 H 100 04/08/19 06:32 98 H 100 04/08/19 06:29 94 H 127/57 L 04/08/19 06:27 97 H 100 04/08/19 06:22 97 H 95 04/08/19 06:17 95 H 96 04/08/19 06:12 97 H 94 04/08/19 06:07 93 H 94 04/08/19 06:02 96 H 94 04/08/19 05:58 86 91 04/08/19 05:57 98 H 95 04/08/19 05:53 96 H 91 04/08/19 05:52 92 H 91 04/08/19 05:47 102 H 95 04/08/19 05:42 97 H 94 04/08/19 05:37 95 H 94 04/08/19 05:32 101 H 94 04/08/19 05:28 96 H 114/54 L 04/08/19 05:27 99 H 93 04/08/19 05:22 100 H 95 04/08/19 05:17 98 H 93 04/08/19 05:12 94 H 94 04/08/19 05:07 100 H 95 04/08/19 05:02 100 H 97 04/08/19 05:00 101 H 89 L 04/08/19 04:57 101 H 94 04/08/19 04:52 98 H 93 04/08/19 04:50 36.8 C 16 04/08/19 04:47 98 H 95 04/08/19 04:42 100 H 95 04/08/19 04:37 110 H 96 04/08/19 04:32 99 H 97 04/08/19 04:29 104 H 104/52 L 04/08/19 04:27 103 H 98 04/08/19 04:22 105 H 97 04/08/19 04:17 104 H 98 04/08/19 04:12 104 H 98 04/08/19 04:07 102 H 97 04/08/19 04:02 104 H 96 04/08/19 03:57 98 H 93 04/08/19 03:52 104 H 95 04/08/19 03:47 107 H 95 04/08/19 03:42 112 H 97 04/08/19 03:37 108 H 95 04/08/19 03:32 113 H 98 04/08/19 03:29 103 H 85 L 04/08/19 03:28 105 H 124/62 04/08/19 03:27 102 H 95 04/08/19 03:22 102 H 97 04/08/19 03:17 109 H 98 04/08/19 03:12 108 H 98 04/08/19 03:07 110 H 80 L 04/08/19 03:02 103 H 96 04/08/19 02:57 104 H 99 04/08/19 02:52 101 H 97 04/08/19 02:47 113 H 96 04/08/19 02:42 110 H 97 04/08/19 02:37 105 H 97 04/08/19 02:32 105 H 95 04/08/19 02:28 107 H 132/60 04/08/19 02:27 109 H 95 04/08/19 02:22 110 H 94 04/08/19 02:17 109 H 95 04/08/19 02:12 115 H 97 04/08/19 02:11 16 04/08/19 02:07 104 H 95 04/08/19 02:02 110 H 96 04/08/19 01:57 109 H 96 04/08/19 01:52 102 H 96 04/08/19 01:47 111 H 97 04/08/19 01:42 112 H 97 04/08/19 01:37 107 H 97 04/08/19 01:32 99 H 96 04/08/19 01:28 103 H 135/72 04/08/19 01:27 102 H 98 04/08/19 01:22 112 H 97 04/08/19 01:17 109 H 98 04/08/19 01:15 16 04/08/19 01:12 104 H 94 04/08/19 01:07 106 H 95 04/08/19 01:02 107 H 95 04/08/19 00:57 107 H 95 04/08/19 00:52 104 H 97 04/08/19 00:47 100 H 97 04/08/19 00:42 110 H 100 04/08/19 00:37 107 H 99 04/08/19 00:32 100 H 97 04/08/19 00:31 104 H 90 04/08/19 00:28 101 H 112/55 L 04/08/19 00:27 98 H 100 04/08/19 00:25 107 H 88 L 04/08/19 00:22 105 H 100 04/08/19 00:20 109 H 90 04/08/19 00:17 107 H 99 04/08/19 00:12 101 H 99 04/08/19 00:07 102 H 99 04/08/19 00:05 37.0 C 16 04/08/19 00:02 106 H 98 04/08/19 00:01 100 H 89 L 04/07/19 23:57 86 94 04/07/19 23:52 103 H 95 04/07/19 23:47 96 H 95 04/07/19 23:42 98 H 96 04/07/19 23:37 99 H 95 04/07/19 23:32 99 H 95 04/07/19 23:29 99 H 116/57 L 04/07/19 23:27 93 H 94 04/07/19 23:22 95 H 93 04/07/19 23:17 98 H 95 04/07/19 23:15 16 04/07/19 23:12 94 H 95 04/07/19 23:07 91 H 95 04/07/19 23:02 97 H 95 04/07/19 22:57 98 H 95 04/07/19 22:52 98 H 95 04/07/19 22:47 100 H 95 04/07/19 22:42 99 H 94 04/07/19 22:37 96 H 96 04/07/19 22:32 103 H 94 04/07/19 22:28 97 H 113/56 L 04/07/19 22:27 99 H 95 04/07/19 22:22 98 H 96 04/07/19 22:17 97 H 97 04/07/19 22:15 18 04/07/19 22:12 99 H 98 04/07/19 22:07 94 H 97 04/07/19 22:02 106 H 100 04/07/19 21:57 112 H 98 04/07/19 21:52 113 H 99 04/07/19 21:47 112 H 97 04/07/19 21:42 109 H 99 04/07/19 21:37 100 H 97 04/07/19 21:32 109 H 100 04/07/19 21:28 107 H 125/58 L 04/07/19 21:27 113 H 98 04/07/19 21:22 109 H 98 04/07/19 21:17 102 H 98 04/07/19 21:14 18 04/07/19 21:12 106 H 98 04/07/19 21:07 106 H 98 04/07/19 21:02 104 H 97 04/07/19 20:57 102 H 95 04/07/19 20:52 103 H 98 04/07/19 20:49 124 H 85 L 04/07/19 20:47 111 H 96 04/07/19 20:42 107 H 97 04/07/19 20:37 105 H 97 04/07/19 20:32 110 H 97 04/07/19 20:29 110 H 109/58 L 04/07/19 20:27 106 H 98 04/07/19 20:22 115 H 95 04/07/19 20:17 104 H 98 04/07/19 20:12 102 H 97 04/07/19 20:07 102 H 98 04/07/19 20:02 101 H 99 04/07/19 19:57 100 H 97 04/07/19 19:52 103 H 97 04/07/19 19:47 109 H 98 04/07/19 19:42 109 H 98 04/07/19 19:37 93 H 93 04/07/19 19:32 108 H 98 04/07/19 19:29 98 H 116/60 04/07/19 19:27 104 H 97 Laboratory Results Abnormal lab results 04/07/19 04/07/19 04/07/19 Range/Units 05:56 12:30 18:26 RBC (4.2-5.4) M/uL Hgb 10.1 L 8.1 L (12.0-16.0) g/dL Hct 31.5 L 25.1 L (37-47) % RDW Std Deviation (36.4-46.3) fL RDW Coeff of Ciaran (11.5-14.5) % Plt Count (130-400) K/uL MPV (7.4-10.4) fL Lymph # (Auto) (1.2-3.4) K/uL [place] # (Auto) (0.11-0.59) K/uL Crossmatch See Detail 04/08/19 Range/Units 06:27 RBC 2.08 L (4.2-5.4) M/uL Hgb 6.0 L* (12.0-16.0) g/dL Hct 18.1 L* (37-47) % RDW Std Deviation 49.5 H (36.4-46.3) fL RDW Coeff of Ciaran 15.8 H (11.5-14.5) % Plt Count 117 L (130-400) K/uL MPV 11.8 H (7.4-10.4) fL Lymph # (Auto) 1.18 L (1.2-3.4) K/uL [place] # (Auto) 0.73 H (0.11-0.59) K/uL Crossmatch Medications Administered Current Inpatient Medications Benzocaine (Dermoplast Pain Relieving [place]) 1 appln EXT UD PRN PRN Reason: use on skin as needed Stop: 05/07/19 09:19 Bisacodyl (Dulcolax) 10 mg ND PRN PRN PRN Reason: Constipation Stop: 05/09/19 09:19 Bisacodyl (Dulcolax) 5 mg PO 2000 NATALY Stop: 04/08/19 20:01 Carboprost Tromethamine (Hemabate) 250 mcg IM ONE PRN PRN Reason: Uterine atony/bleeding Stop: 05/07/19 13:46 Cocaine HCl (Supercream 0.870%) 1 gm EXT UD PRN PRN Reason: hemmorrhoidal inflammation Stop: 04/21/19 09:19 Diphenhydramine HCl (Benadryl) 25 mg IV QID PRN PRN Reason: Itching Stop: 05/08/19 02:29 Last Admin: 04/08/19 04:45 Dose: 25 mg Documented by: Diphenhydramine HCl (Benadryl Capsule) 25 mg PO QID PRN PRN Reason: Itching Stop: 05/08/19 02:29 Docusate Sodium (Colace) 100 mg PO DAILY@, [facility] Stop: 05/07/19 20:59 Last Admin: 04/07/19 21:06 Dose: 100 mg Documented by: Ferrous Sulfate (Feosol) 325 mg PO DAILY@08 [facility] Stop: 05/08/19 07:59 Hydrocortisone (Anusol Hc) 25 mg ND BID PRN PRN Reason: Hemorrhoids Stop: 05/07/19 09:19 Promethazine HCl 25 mg/ Sodium (Chloride) 51 mls @ 204 mls/hr IV Q4H PRN PRN Reason: Nausea And Vomiting Stop: 05/08/19 02:29 Cefazolin Sodium 3,000 mg/ (Dextrose) 72.5 mls @ 130 mls/hr IV Q8H NATALY Stop: 04/17/19 13:59 Last Admin: 04/08/19 06:08 Dose: 130 mls/hr Documented by: Sodium Chloride (Nss) 250 mls @ 15 mls/hr IV .[id number] PRN PRN Reason: For Transfusion Stop: 05/08/19 06:59 Sodium Chloride (Nss) 250 mls @ 15 mls/hr IV .[id number] PRN PRN Reason: For Transfusion Stop: 04/08/19 23:59 Ibuprofen (Motrin) 600 mg PO Q4H PRN PRN Reason: Pain Stop: 05/07/19 09:19 Ketorolac Tromethamine (Toradol) 30 mg IV Q6H PRN PRN Reason: Pain Stop: 04/13/19 02:29 Magnesium Hydroxide (Milk Of Magnesia) 30 ml PO HS PRN PRN Reason: Constipation Stop: 05/07/19 09:19 Meperidine HCl (Demerol) 50 - 75 mg IV Q4H PRN PRN Reason: Pain Stop: 04/22/19 02:29 Methylergonovine Maleate (Methergine) 0.2 mg PO QID [facility] Stop: 04/08/19 11:04 Last Admin: 04/07/19 21:06 Dose: 0.2 mg Documented by: Methylergonovine Maleate (Methergine) 0.2 mg IM Q4H PRN PRN Reason: Uterine atony/bleeding Stop: 05/07/19 13:46 Miscellaneous (Order Awaiting Action) 1 ea N/A QS [facility] Stop: 05/08/19 06:49 Non-Formulary Medication (Non-Formulary Patient's Own Med) 1 ea PO BID [facility] Stop: 05/08/19 08:59 Nystatin (Mycostatin) 1 appln EXT BID PRN PRN Reason: Affected Skin Folds Stop: 05/08/19 06:47 Ondansetron HCl (Zofran) 4 mg IV Q4H PRN PRN Reason: Nausea And Vomiting Stop: 05/08/19 02:29 Oxycodone/Acetaminophen (Percocet 5mg/325mg) 1 - 2 tab PO Q4H PRN PRN Reason: Pain Stop: 04/22/19 02:29 Prenat Multivit/[place]/Iron/Folic Ac ( Vitamin) 1 tab PO DAILY@08 [facility] Stop: 05/08/19 07:59 Sennosides (Senokot) 17.2 mg PO HS PRN PRN Reason: Constipation Stop: 05/07/19 09:19 Simethicone (Mylicon) 80 mg PO DAILY@08,13,17,21 [facility] Stop: 05/07/19 12:59 Last Admin: 04/07/19 21:05 Dose: 80 mg Documented by: Zolpidem Tartrate (Ambien) 5 mg PO HS PRN PRN Reason: Sleep Stop: 05/08/19 02:29 <Carl Arias MD - Last Filed: 04/08/19 07:59> Co-Signing Physician Notes Patient seen and evaluated and agree with the above findings and plan. Patient had a post hemorrhage several hours after delivery with total EBL 1800- 2000mL. Patient received Methergine, cytotec, hemabate and has Bakri still in place with 75mL remaining. Bleeding minimal since Bakri placement. H/H 6.0/18.1. Patient agreed to blood transfusion and is scheduled for 2 units. Patient also noted to have low UOP ~25mL per hour. This will likely improve with transfusion. Will continue to monitor. Resident Activity Tracking <Edilberto Danielson DO - Last Filed: 04/08/19 07:31> Resident Involvement: Resident Care Provided Care Provided: OB Delivery
[2019-04-08] MEDS: SIMETHICONE 80 MG CHEW PO SCH ×4 (08:16→19:45)
[2019-04-08] MEDS: NYSTATIN POWDER 15GM BTL EXT PRN (08:16)
[2019-04-08] MEDS: DOCUSATE SODIUM 100 MG CAP PO SCH ×2 (08:16→20:30)
[2019-04-08] MEDS: FERROUS SULFATE 325 MG TAB PO SCH (08:16)
[2019-04-08] MEDS: PRENATAL VITAMIN 1 TAB PO SCH (08:16)
[2019-04-08] MEDS: NON-FORMULARY PATIENT'S OWN MED PO SCH ×2 (08:17→20:30)
[2019-04-08] MEDS: METHYLERGONOVINE MALEATE 0.2 MG TAB PO SCH (08:18)
[2019-04-08] MEDS ORDERED: LACTATED RINGER'S 1,000 ML IV SCH (09:45)
--- NOTE | 2019-04-08 09:49 | Obstetrical Progress Note ---
Date of Service April 08, 2019 Assessment & Plan (1) Chronic hypertension in obstetric context in third trimester: (2) Supervision of multigravida of advanced maternal age, antepartum: (3) Insulin controlled gestational diabetes mellitus (GDM) during : (4) Large for gestational age fetus: (5) S/P section: (6) hemorrhage: (7) Severe anemia: getting 2 units prbc. will plan hgb at 2pm. see how urine output responds but plan LR until michele fluids well. Need to consider transfer to floor, will see how pt doing after units of blood. If bleeding stable by then, advance diet. Pt aware of plan. Subjective Patient noting feeling a little woozy but thirsty. She notes small passage of gas. Breast feeding. No significant bleeding since bakri balloon backed down previously. Michele liquids. no cp or sob. Duramorph orders are up and she is getting 1st unit prbc. Review of Systems Constitutional: + fatigue Physical Exam Constitutional: WD/WN, vitals as above Genitourinary: ff about at umbilicus, morbidly obese. bakri balloon deflated and removed. Results & Data Vital Signs (Past 12 Hours) Vital Signs Temp Pulse Resp BP Pulse Ox 04/08/19 09:37 98 H 94 04/08/19 09:35 103 H 85 L 04/08/19 09:32 104 H 100 04/08/19 09:27 101 H 92 04/08/19 09:22 101 H 99 04/08/19 09:17 101 H 98 04/08/19 09:12 103 H 99 04/08/19 09:10 103 H 141/64 H 04/08/19 09:09 99 H 87 L 04/08/19 09:08 98.6 F 107 H 20 141/64 H 98 04/08/19 09:07 101 H 100 04/08/19 09:04 106 H 141/89 H 04/08/19 09:02 101 H 99 04/08/19 08:57 97 H 93 04/08/19 08:52 100 H 94 04/08/19 08:48 98.6 F 100 H 20 140/70 94 04/08/19 08:47 96 H 99 04/08/19 08:42 100 H 99 04/08/19 08:37 100 H 98 04/08/19 08:35 98.6 F 104 H 20 126/62 94 04/08/19 08:33 104 H 126/62 04/08/19 08:32 99 H 98 04/08/19 08:27 103 H 98 04/08/19 08:22 102 H 100 04/08/19 08:21 99.0 F 106 H 20 04/08/19 08:18 107 H 123/61 04/08/19 08:17 103 H 99 04/08/19 08:12 105 H 97 04/08/19 08:07 102 H 99 04/08/19 08:04 99.0 F 95 H 20 132/61 100 04/08/19 08:03 98 H 132/61 04/08/19 08:02 101 H 94 04/08/19 07:57 110 H 97 04/08/19 07:52 98 H 97 04/08/19 07:47 109 H 98 04/08/19 07:42 106 H 99 04/08/19 07:37 107 H 100 04/08/19 07:32 101 H 97 04/08/19 07:28 98.1 F 106 H 20 118/65 04/08/19 07:27 111 H 95 04/08/19 07:22 105 H 98 04/08/19 07:17 92 H 100 04/08/19 07:12 97 H 98 04/08/19 07:08 100 H 86 L 04/08/19 07:07 105 H 100 04/08/19 07:02 101 H 100 04/08/19 06:57 99 H 95 04/08/19 06:52 93 H 100 04/08/19 06:47 97 H 100 04/08/19 06:42 96 H 97 04/08/19 06:37 94 H 100 04/08/19 06:32 98 H 100 04/08/19 06:29 94 H 127/57 L 04/08/19 06:27 97 H 100 04/08/19 06:22 97 H 95 04/08/19 06:17 95 H 96 04/08/19 06:12 97 H 94 04/08/19 06:07 93 H 94 04/08/19 06:02 96 H 94 04/08/19 05:58 86 91 04/08/19 05:57 98 H 95 04/08/19 05:53 96 H 91 04/08/19 05:52 92 H 91 04/08/19 05:47 102 H 95 04/08/19 05:42 97 H 94 04/08/19 05:37 95 H 94 04/08/19 05:32 101 H 94 04/08/19 05:28 96 H 114/54 L 04/08/19 05:27 99 H 93 04/08/19 05:22 100 H 95 04/08/19 05:17 98 H 93 04/08/19 05:12 94 H 94 04/08/19 05:07 100 H 95 04/08/19 05:02 100 H 97 04/08/19 05:00 101 H 89 L 04/08/19 04:57 101 H 94 04/08/19 04:52 98 H 93 04/08/19 04:50 98.2 F 16 04/08/19 04:47 98 H 95 04/08/19 04:42 100 H 95 04/08/19 04:37 110 H 96 04/08/19 04:32 99 H 97 04/08/19 04:29 104 H 104/52 L 04/08/19 04:27 103 H 98 04/08/19 04:22 105 H 97 04/08/19 04:17 104 H 98 04/08/19 04:12 104 H 98 04/08/19 04:07 102 H 97 04/08/19 04:02 104 H 96 04/08/19 03:57 98 H 93 04/08/19 03:52 104 H 95 04/08/19 03:47 107 H 95 04/08/19 03:42 112 H 97 04/08/19 03:37 108 H 95 04/08/19 03:32 113 H 98 04/08/19 03:29 103 H 85 L 04/08/19 03:28 105 H 124/62 04/08/19 03:27 102 H 95 04/08/19 03:22 102 H 97 04/08/19 03:17 109 H 98 04/08/19 03:12 108 H 98 04/08/19 03:07 110 H 80 L 04/08/19 03:02 103 H 96 04/08/19 02:57 104 H 99 04/08/19 02:52 101 H 97 04/08/19 02:47 113 H 96 04/08/19 02:42 110 H 97 04/08/19 02:37 105 H 97 04/08/19 02:32 105 H 95 04/08/19 02:28 107 H 132/60 04/08/19 02:27 109 H 95 04/08/19 02:22 110 H 94 04/08/19 02:17 109 H 95 04/08/19 02:12 115 H 97 04/08/19 02:11 16 04/08/19 02:07 104 H 95 04/08/19 02:02 110 H 96 04/08/19 01:57 109 H 96 04/08/19 01:52 102 H 96 04/08/19 01:47 111 H 97 04/08/19 01:42 112 H 97 04/08/19 01:37 107 H 97 04/08/19 01:32 99 H 96 04/08/19 01:28 103 H 135/72 04/08/19 01:27 102 H 98 04/08/19 01:22 112 H 97 04/08/19 01:17 109 H 98 04/08/19 01:15 16 04/08/19 01:12 104 H 94 04/08/19 01:07 106 H 95 04/08/19 01:02 107 H 95 04/08/19 00:57 107 H 95 04/08/19 00:52 104 H 97 04/08/19 00:47 100 H 97 04/08/19 00:42 110 H 100 04/08/19 00:37 107 H 99 04/08/19 00:32 100 H 97 04/08/19 00:31 104 H 90 04/08/19 00:28 101 H 112/55 L 04/08/19 00:27 98 H 100 04/08/19 00:25 107 H 88 L 04/08/19 00:22 105 H 100 04/08/19 00:20 109 H 90 04/08/19 00:17 107 H 99 04/08/19 00:12 101 H 99 04/08/19 00:07 102 H 99 04/08/19 00:05 98.6 F 16 04/08/19 00:02 106 H 98 04/08/19 00:01 100 H 89 L 04/07/19 23:57 86 94 04/07/19 23:52 103 H 95 04/07/19 23:47 96 H 95 04/07/19 23:42 98 H 96 04/07/19 23:37 99 H 95 04/07/19 23:32 99 H 95 04/07/19 23:29 99 H 116/57 L 04/07/19 23:27 93 H 94 04/07/19 23:22 95 H 93 04/07/19 23:17 98 H 95 04/07/19 23:15 16 04/07/19 23:12 94 H 95 04/07/19 23:07 91 H 95 04/07/19 23:02 97 H 95 04/07/19 22:57 98 H 95 04/07/19 22:52 98 H 95 04/07/19 22:47 100 H 95 04/07/19 22:42 99 H 94 04/07/19 22:37 96 H 96 04/07/19 22:32 103 H 94 04/07/19 22:28 97 H 113/56 L 04/07/19 22:27 99 H 95 04/07/19 22:22 98 H 96 04/07/19 22:17 97 H 97 04/07/19 22:15 18 04/07/19 22:12 99 H 98 04/07/19 22:07 94 H 97 04/07/19 22:02 106 H 100 04/07/19 21:57 112 H 98 04/07/19 21:52 113 H 99 04/07/19 21:47 112 H 97 PG Care Time/CCT Total # of Minutes Spent Total Time Spent with Patient: Total time spent is greater than 50% in coordination of care (as documented) at patient's floor/unit and/or counseling patient:
[2019-04-08] MEDS: OXYCODONE/ACETAMINOPHEN 5mg/325mg TAB PO PRN ×4 (10:40→23:40)
[2019-04-08] MEDS: IBUPROFEN 600 MG TAB PO PRN ×4 (10:41→23:39)
[2019-04-08 14:19] LABS: Hematocrit (blood only) 23.2 % (37-47); Hemoglobin 7.8 g/dL (12.0-16.0)
[2019-04-08] MEDS ORDERED: BISACODYL 5 MG TABEC PO SCH (20:00)
[2019-04-09 06:35] LABS: Hematocrit (blood only) 20.3 % (37-47); Hemoglobin 6.7 g/dL (12.0-16.0)
--- NOTE | 2019-04-09 07:30 | Obstetrical Progress Note ---
Date of Service <Edilberto Danielson DO - Last Filed: 04/09/19 08:08> April 09, 2019 Assessment & Plan <Edilberto Danielson DO - Last Filed: 04/09/19 08:08> (1) : -POD#2 -Vitals reviewed, WNL (Tmax 36.8) - GBS -, Blood Type O+ - Pain well controlled. - Routine post care - Patient had PPH of roughly 1800 cc blood loss on delivery day. - Devonte balloon was removed yesterday. - Hgb this yesterday was 6.0, patient was transfused with 2 units of PRBC resulting in a Hgb of 7.8 - Hgb this AM 6.7. Patient denying any symptoms including sob, dizziness, palpitations. - Will continue to monitor and check Hgb in AM tomorrow, consider 1 unit PRBC transfusion if needed. Day #:: 2 Subjective <Edilberto Danielson DO - Last Filed: 04/09/19 08:08> Ambulation: ambulating normally Voiding: no voiding problems (Notes increased urination and decrease in blood. States it is "like a period") Passing Gas:: Yes Diet Tolerance:: regular diet Lochia:: Moderate Feeding Type:: bottle feeding (Also continuing to breast pump, however, due to lack of excretion uses bottle primarily.) Current Pain Level(1-10): 2 (at rest, with analgesics) Patient is a 33 POD#2. Patient states that she is feeling better this morning after receiving the transfusion. She does note a decrease in breast milk production. Constitutional: no fever and no chills Respiratory: no cough, no dyspnea and no wheezing Cardiovascular: + edema; no chest pain, no dyspnea, no dyspnea on exertion and no calf pain Breast: no breast pain Gastrointestinal: no abdominal pain, no nausea and no vomiting Genitourinary (female): no dysuria Neurologic: no headache(s) Physical Exam <Edilberto Danielson DO - Last Filed: 04/09/19 08:08> Constitutional + morbidly obese, cooperative and comfortable; no acute distress Respiratory normal respiratory effort, lungs clear to auscultation Cardiovascular Rate/Rhythm: regular rate and regular rhythm Heart Sounds: normal S1 and normal S2; no click, no gallop, no murmur and no cardiac rub Extremities: + edema (+1); no calf tenderness Gastrointestinal (Abdomen) Inspection/Auscultation: abdomen normal to inspection, normal bowel sounds, + abdominal edema (abdominal edema pooling in lower quadrants) and + abdominal surgical incision (Clean and Dry, No Pus noted. ) Percussion/Palpation: + abdomen tender (Slightly tender to palpation of upper abdominal quadrants) and abdomen soft Genitourinary OB Exam Abdomen: + fundal height Fundus: + firm and + relation to umbilicus (1cm below); not tender and not boggy Results & Data <Edilberto Danielson DO - Last Filed: 04/09/19 08:08> Vital Signs (Past 12 Hours) Vital Signs Temp Pulse Resp BP Pulse Ox Pulse Ox 04/08/19 23:45 36.8 C 96 H 20 127/83 96 96 04/08/19 19:55 36.6 C 118 H 20 128/76 Laboratory Results Abnormal lab results 04/07/19 04/08/19 04/09/19 Range/Units 05:56 14:04 06:09 Hgb 7.8 L 6.7 L* (12.0-16.0) g/dL Hct 23.2 L 20.3 L* (37-47) % Crossmatch See Detail Medications Administered Current Inpatient Medications Benzocaine (Dermoplast Pain Relieving [place]) 1 appln EXT UD PRN PRN Reason: use on skin as needed Stop: 05/07/19 09:19 Bisacodyl (Dulcolax) 10 mg [place] PRN PRN PRN Reason: Constipation Stop: 05/09/19 09:19 Carboprost Tromethamine (Hemabate) 250 mcg IM ONE PRN PRN Reason: Uterine atony/bleeding Stop: 05/07/19 13:46 Cocaine HCl (Supercream 0.870%) 1 gm EXT UD PRN PRN Reason: hemmorrhoidal inflammation Stop: 04/21/19 09:19 Diphenhydramine HCl (Benadryl) 25 mg IV QID PRN PRN Reason: Itching Stop: 05/08/19 02:29 Last Admin: 04/08/19 04:45 Dose: 25 mg Documented by: Diphenhydramine HCl (Benadryl Capsule) 25 mg PO QID PRN PRN Reason: Itching Stop: 05/08/19 02:29 Docusate Sodium (Colace) 100 mg PO DAILY@08,21 [facility] Stop: 05/07/19 20:59 Last Admin: 04/08/19 20:30 Dose: 100 mg Documented by: Ferrous Sulfate (Feosol) 325 mg PO DAILY@08 [facility] Stop: 05/08/19 07:59 Last Admin: 04/08/19 08:16 Dose: 325 mg Documented by: Hydrocortisone (Anusol Hc) 25 mg [place] BID PRN PRN Reason: Hemorrhoids Stop: 05/07/19 09:19 Promethazine HCl 25 mg/ Sodium (Chloride) 51 mls @ 204 mls/hr IV Q4H PRN PRN Reason: Nausea And Vomiting Stop: 05/08/19 02:29 Sodium Chloride (Nss) 250 mls @ 15 mls/hr IV .[id number] PRN PRN Reason: For Transfusion Stop: 05/08/19 06:59 Lactated Ringer's (Lr) 1,000 mls @ 125 mls/hr IV .Q8H [facility] Stop: 05/08/19 09:44 Ibuprofen (Motrin) 600 mg PO Q4H PRN PRN Reason: Pain Stop: 05/07/19 09:19 Last Admin: 04/08/19 23:39 Dose: 600 mg Documented by: Ketorolac Tromethamine (Toradol) 30 mg IV Q6H PRN PRN Reason: Pain Stop: 04/13/19 02:29 Magnesium Hydroxide (Milk Of Magnesia) 30 ml PO HS PRN PRN Reason: Constipation Stop: 05/07/19 09:19 Meperidine HCl (Demerol) 50 - 75 mg IV Q4H PRN PRN Reason: Pain Stop: 04/22/19 02:29 Methylergonovine Maleate (Methergine) 0.2 mg IM Q4H PRN PRN Reason: Uterine atony/bleeding Stop: 05/07/19 13:46 Non-Formulary Medication (Non-Formulary Patient's Own Med) 1 ea PO BID [facility] Stop: 05/08/19 08:59 Last Admin: 04/08/19 20:30 Dose: 1 tabs Documented by: Nystatin (Mycostatin) 1 appln EXT BID PRN PRN Reason: Affected Skin Folds Stop: 05/08/19 06:47 Last Admin: 04/08/19 08:16 Dose: 1 appln Documented by: Ondansetron HCl (Zofran) 4 mg IV Q4H PRN PRN Reason: Nausea And Vomiting Stop: 05/08/19 02:29 Oxycodone/Acetaminophen (Percocet 5mg/325mg) 1 - 2 tab PO Q4H PRN PRN Reason: Pain Stop: 04/22/19 02:29 Last Admin: 04/08/19 23:40 Dose: 1 tab Documented by: Tajat Multivit/Extension Service Agent/Iron/Folic Ac ( Vitamin) 1 tab PO DAILY@08 [facility]AL[facility] Stop: 05/08/19 07:59 Last Admin: 04/08/19 08:16 Dose: 1 tab Documented by: Sennosides (Senokot) 17.2 mg PO HS PRN PRN Reason: Constipation Stop: 05/07/19 09:19 Simethicone (Mylicon) 80 mg PO DAILY@08,13,17,21 [facility] Stop: 05/07/19 12:59 Last Admin: 04/08/19 19:45 Dose: 80 mg Documented by: Zolpidem Tartrate (Ambien) 5 mg PO HS PRN PRN Reason: Sleep Stop: 05/08/19 02:29 <Cecy Boston MD, FACOG - Last Filed: 04/09/19 08:22> Co-Signing Physician Notes Resident Physician Supervision Note: I was present with Dr. Danielson during the history and exam. I discussed the case with the resident and agree with the findings and plan as documented in the note. Any exceptions or clarifications are listed here: doing well, stable, she is tolerating her hgb but will see how day progresses. aware may need more blood. Documented By: Cecy Boston MD, FACOG Resident Activity Tracking <Edilberto Danielson DO - Last Filed: 04/09/19 08:08> Resident Involvement: Resident Care Provided Care Provided: OB Delivery
[2019-04-09] MEDS: PRENATAL VITAMIN 1 TAB PO SCH (09:01)
[2019-04-09] MEDS: FERROUS SULFATE 325 MG TAB PO SCH (09:01)
[2019-04-09] MEDS: SIMETHICONE 80 MG CHEW PO SCH ×4 (09:01→20:11)
[2019-04-09] MEDS: DOCUSATE SODIUM 100 MG CAP PO SCH ×2 (09:02→20:11)
[2019-04-09] MEDS: NON-FORMULARY PATIENT'S OWN MED PO SCH ×2 (09:02→21:05)
[2019-04-09] MEDS ORDERED: BISACODYL 10 MG SUPP PR PRN (09:20)
[2019-04-09] MEDS: NYSTATIN POWDER 15GM BTL EXT PRN ×2 (09:26→15:43)
[2019-04-09] MEDS: IBUPROFEN 600 MG TAB PO PRN ×3 (09:27→20:12)
[2019-04-09] MEDS: OXYCODONE/ACETAMINOPHEN 5mg/325mg TAB PO PRN ×3 (09:28→20:11)
[2019-04-10] MEDS: IBUPROFEN 600 MG TAB PO PRN ×4 (06:29→23:35)
[2019-04-10] MEDS: OXYCODONE/ACETAMINOPHEN 5mg/325mg TAB PO PRN ×4 (06:29→23:35)
[2019-04-10 06:36] LABS: Hemoglobin 6.2 g/dL (12.0-16.0)
--- NOTE | 2019-04-10 09:03 | Obstetrical Progress Note ---
Date of Service April 10, 2019 Assessment & Plan (1) S/P section: - H/H stable at 01/26 - vital signs are stable - no orthostatic signs or sx's - patient desires d/c home - d/c instructions and Rx's sent - will f/u in 10 days for a post-op check - all questions answered of the patient (2) Severe anemia: Subjective Ambulation: ambulating normally Voiding: no voiding problems Passing Gas:: Yes Diet Tolerance:: regular diet Feeding Type:: breast feeding Ambulated yesterday with no lightheadedness or dizziness, desires d/c Physical Exam Constitutional WD/WN, vitals as above Respiratory normal respiratory effort, lungs clear to auscultation Cardiovascular RRR, no murmur, no edema Gastrointestinal (Abdomen) Incision intact, appropriate post-op tenderness Musculoskeletal (-) deep calf tenderness Results & Data Vital Signs (Past 12 Hours) Vital Signs Temp Pulse Resp BP Pulse Ox 04/10/19 07:25 97.5 F L 74 18 118/77 97 04/10/19 00:15 97.9 F 94 H 18 122/86
[2019-04-10] MEDS: DOCUSATE SODIUM 100 MG CAP PO SCH ×2 (09:06→21:31)
[2019-04-10] MEDS: SIMETHICONE 80 MG CHEW PO SCH ×4 (09:06→21:31)
[2019-04-10] MEDS: PRENATAL VITAMIN 1 TAB PO SCH (09:06)
[2019-04-10] MEDS: NON-FORMULARY PATIENT'S OWN MED PO SCH ×2 (09:07→21:31)
[2019-04-10] MEDS: NYSTATIN POWDER 15GM BTL EXT PRN ×2 (09:08→23:39)
[2019-04-10] MEDS: FERROUS SULFATE 325 MG TAB PO SCH (17:40)
[2019-04-11] MEDS: IBUPROFEN 600 MG TAB PO PRN ×2 (06:27→11:14)
[2019-04-11] MEDS: OXYCODONE/ACETAMINOPHEN 5mg/325mg TAB PO PRN ×2 (06:28→11:14)
--- NOTE | 2019-04-11 06:32 | Obstetrical Progress Note ---
Date of Service <Edilberto Danielson DO - Last Filed: 04/11/19 06:38> April 11, 2019 Assessment & Plan <Edilberto Danielson DO - Last Filed: 04/11/19 06:38> (1) : -POD#3 -Vitals reviewed, WNL (Tmax 36.8) - GBS -, Blood Type O+ - Pain well controlled. - Routine post care - Patient had PPH of roughly 1800 cc blood loss on delivery day. - Devonte balloon was removed the following day. - Hgb initial was 6.0, patient was transfused with 2 units of PRBC resulting in a Hgb of 7.8 - Hgb this AM 6.8. Patient denying any symptoms including sob, dizziness, palpitations. - Patient was counseled on discharge yesterday, but decided to stay one more night. Doing well today and would like D/C. - Questions and concerns answered. Day #:: 3 Subjective <Edilberto Danielson DO - Last Filed: 04/11/19 06:38> Ambulation: ambulating normally Voiding: no voiding problems Passing Gas:: Yes Diet Tolerance:: regular diet Lochia:: Small Feeding Type:: breast feeding (supplementing with bottle feeds) Current Pain Level(1-10): 3 (improves with analgesics) Patient is a 33 POD#3. Patient states that she is feeling better this morning and is interested in discharge. She has no other complaints at this time. Constitutional: no fever and no chills Respiratory: no cough, no dyspnea and no wheezing Cardiovascular: + edema; no chest pain, no dyspnea, no dyspnea on exertion and no calf pain Breast: no breast pain Gastrointestinal: no abdominal pain, no nausea and no vomiting Genitourinary (female): no dysuria Neurologic: no headache(s) Physical Exam <DO Gena Hale Last Filed: 04/11/19 06:38> Constitutional + morbidly obese, cooperative and comfortable; no acute distress Respiratory normal respiratory effort, lungs clear to auscultation Cardiovascular Rate/Rhythm: regular rate and regular rhythm Heart Sounds: normal S1 and normal S2; no click, no gallop, no murmur and no cardiac rub Extremities: + edema (+1); no calf tenderness Gastrointestinal (Abdomen) Inspection/Auscultation: abdomen normal to inspection, normal bowel sounds, + abdominal edema (abdominal edema pooling in lower quadrants) and + abdominal surgical incision (Clean and Dry, No Pus noted. ) Percussion/Palpation: + abdomen tender (Slightly tender to palpation of upper abdominal quadrants, improved. ) and abdomen soft Genitourinary OB Exam Abdomen: + fundal height Fundus: + firm and + relation to umbilicus (2cm below); not tender and not boggy Results & Data <Edilberto Danielson DO - Last Filed: 04/11/19 06:38> Vital Signs (Past 12 Hours) Vital Signs Temp Pulse Resp BP Pulse Ox 04/10/19 23:30 36.5 C 87 18 126/83 96 04/10/19 19:45 36.7 C 85 18 149/95 H 98 Laboratory Results Abnormal lab results 04/10/19 Range/Units 05:59 Hgb 6.2 L* (12.0-16.0) g/dL Hct 19.0 L* (37-47) % Medications Administered Current Inpatient Medications Benzocaine (Dermoplast Pain Relieving [place]) 1 appln EXT UD PRN PRN Reason: use on skin as needed Stop: 05/07/19 09:19 Bisacodyl (Dulcolax) 10 mg NH PRN PRN PRN Reason: Constipation Stop: 05/09/19 09:19 Carboprost Tromethamine (Hemabate) 250 mcg IM ONE PRN PRN Reason: Uterine atony/bleeding Stop: 05/07/19 13:46 Cocaine HCl (Supercream 0.870%) 1 gm EXT UD PRN PRN Reason: hemmorrhoidal inflammation Stop: 04/21/19 09:19 Diphenhydramine HCl (Benadryl) 25 mg IV QID PRN PRN Reason: Itching Stop: 05/08/19 02:29 Last Admin: 04/08/19 04:45 Dose: 25 mg Documented by: Diphenhydramine HCl (Benadryl Capsule) 25 mg PO QID PRN PRN Reason: Itching Stop: 05/08/19 02:29 Docusate Sodium (Colace) 100 mg PO DAILY@08,21 NATALY Stop: 05/07/19 20:59 Last Admin: 04/10/19 21:31 Dose: 100 mg Documented by: Ferrous Sulfate (Feosol) 325 mg PO BIDM [facility] Stop: 05/10/19 16:59 Last Admin: 04/10/19 17:40 Dose: 325 mg Documented by: Hydrocortisone (Anusol Hc) 25 mg NH BID PRN PRN Reason: Hemorrhoids Stop: 05/07/19 09:19 Promethazine HCl 25 mg/ Sodium (Chloride) 51 mls @ 204 mls/hr IV Q4H PRN PRN Reason: Nausea And Vomiting Stop: 05/08/19 02:29 Sodium Chloride (Nss) 250 mls @ 15 mls/hr IV .[id number] PRN PRN Reason: For Transfusion Stop: 05/08/19 06:59 Lactated Ringer's (Lr) 1,000 mls @ 125 mls/hr IV .Q8H [facility] Stop: 05/08/19 09:44 Ibuprofen (Motrin) 600 mg PO Q4H PRN PRN Reason: Pain Stop: 05/07/19 09:19 Last Admin: 04/11/19 06:27 Dose: 600 mg Documented by: Ketorolac Tromethamine (Toradol) 30 mg IV Q6H PRN PRN Reason: Pain Stop: 04/13/19 02:29 Magnesium Hydroxide (Milk Of Magnesia) 30 ml PO HS PRN PRN Reason: Constipation Stop: 05/07/19 09:19 Meperidine HCl (Demerol) 50 - 75 mg IV Q4H PRN PRN Reason: Pain Stop: 04/22/19 02:29 Methylergonovine Maleate (Methergine) 0.2 mg IM Q4H PRN PRN Reason: Uterine atony/bleeding Stop: 05/07/19 13:46 Non-Formulary Medication (Non-Formulary Patient's Own Med) 1 ea PO BID [facility] Stop: 05/08/19 08:59 Last Admin: 04/10/19 21:31 Dose: 875 tabs Documented by: Nystatin (Mycostatin) 1 appln EXT BID PRN PRN Reason: Affected Skin Folds Stop: 05/08/19 06:47 Last Admin: 04/10/19 23:39 Dose: 1 appln Documented by: Ondansetron HCl (Zofran) 4 mg IV Q4H PRN PRN Reason: Nausea And Vomiting Stop: 05/08/19 02:29 Oxycodone/Acetaminophen (Percocet 5mg/325mg) 1 - 2 tab PO Q4H PRN PRN Reason: Pain Stop: 04/22/19 02:29 Last Admin: 04/11/19 06:28 Dose: 1 tab Documented by: Edilma Multivit/Method Consultant/Iron/Folic Ac ( Vitamin) 1 tab PO DAILY@08 NATALY Stop: 05/08/19 07:59 Last Admin: 04/10/19 09:06 Dose: 1 tab Documented by: Sennosides (Senokot) 17.2 mg PO HS PRN PRN Reason: Constipation Stop: 05/07/19 09:19 Simethicone (Mylicon) 80 mg PO DAILY@08,13,17,21 [facility] Stop: 05/07/19 12:59 Last Admin: 04/10/19 21:31 Dose: 80 mg Documented by: Zolpidem Tartrate (Ambien) 5 mg PO HS PRN PRN Reason: Sleep Stop: 05/08/19 02:29 <Abisai Vu Jr, MD, FACOG - Last Filed: 04/11/19 07:21> Co-Signing Physician Notes Resident Physician Supervision Note: I was present with Dr. Danielson during the history and exam. I discussed the case with the resident and agree with the findings and plan as documented in the note. Any exceptions or clarifications are listed here: Patient desires d/c, instructions and Rx sent. Allquestions answered. Documented By: Abisai Vu Jr, MD, FACOG Resident Activity Tracking <Edilberto Danielson DO - Last Filed: 04/11/19 06:38> Resident Involvement: Resident Care Provided Care Provided: OB Delivery
[2019-04-11 06:35] LABS: Hematocrit (blood only) 21.3 % (37-47); Hemoglobin 6.8 g/dL (12.0-16.0)
[2019-04-11] MEDS: NYSTATIN POWDER 15GM BTL EXT PRN (08:30)
[2019-04-11] MEDS: PRENATAL VITAMIN 1 TAB PO SCH (09:01)
[2019-04-11] MEDS: SIMETHICONE 80 MG CHEW PO SCH ×2 (09:01→12:11)
[2019-04-11] MEDS: FERROUS SULFATE 325 MG TAB PO SCH (09:01)
[2019-04-11] MEDS: DOCUSATE SODIUM 100 MG CAP PO SCH (09:02)
[2019-04-11] MEDS: NON-FORMULARY PATIENT'S OWN MED PO SCH (09:02)
--- NOTE | 2019-04-18 12:19 | Discharge Summary ---
PROCEDURES WHILE ADMITTED: 1. Repeat low transverse section. 2. Bakri balloon placement for hemorrhage. 3. Blood transfusion for 2 units of packed red blood cells. HOSPITAL COURSE: The patient was admitted for scheduled repeat low transverse section with history of 2 prior C-sections. The patient had an extensive past medical history and complicated course. The patient underwent the section that was uncomplicated with delivery of an 11 pound 14 ounce . The patient was then taken to recovery room initially in stable condition. I was once again asked to reevaluate the patient approximately 2 hours later due to increased bleeding. At that time, approximately 1000 mL of blood clot were expressed from the uterus. The patient was given an IM Methergine followed by IM Hemabate and 800 mcg of Cytotec was placed per rectum. Due to the difficulty filling the patient's uterine fundus and bleeding which was intermittently occurring, decision was made to place a Bakri balloon as the patient had already lost approximately 5113-1037 mL of blood loss in total from the procedure and hemorrhage occurring after delivery. The Bakri balloon stayed in place for approximately 24 hours. Her blood counts were checked on a serial basis. There were noted to yassine at 6.0/18.1 and the patient was recommended to receive a blood transfusion, which included 2 units of packed red blood cells. After transfusion, the patient reports significant improvement in her symptoms. Her hemoglobin and hematocrit remained stable. The patient remained in-house approximately 4 days and did well throughout the course. The patient requested discharge on day #4 and at that time was stable for discharge. The patient was given verbal and written discharge instructions with close followup plan due to the increased bleeding and prior issues with wound infections. The patient will be seen in clinic next week for wound check and overall assessment of state. CHULA
== END 2019-04-11 13:30 | disposition home or self-care (01) | DRG 786 ==
LOC: 4S1 05:36 → EDSTATUS 07:30 → 4S2 04-08 13:40